=== PATIENT | male | born 1950 | race Caucasian/White ===

== ENCOUNTER 2016-10-20 10:28 | Emergency (ER) | payer OTHER ==
[~2016-10-20 10:28] MED LIST: Sodium Chloride 0.9% 1,000 ML BAG ONE; Sodium Chloride 0.9% 100 ML BAG ONE; Sodium Chloride 0.9% 500 ML BAG ONE
[2016-10-20 11:58] LABS: INR-International Normal Ratio 1.1; Prothrombin Time 14.7 SEC (12.0-14.7)
[2016-10-20 11:59] LABS: PTT 29.4 SEC (22.9-36.1)
[2016-10-20 12:00] LABS: Hemoglobin 9.4 g/dL (14.0-18.0); Mean Corpuscular Hemoglobin 35.1 pg (27.0-31.0); Red Blood Cell (RBC) Count 2.69 mill/uL (4.70-6.10)
[2016-10-20 12:01] LABS: MDiff Complete? YES; Manual Diff?? YES; Mean Corpuscular HGB CONC 34.3 g/dL (32.0-36.0); Mean Platelet Volume 7.9 fL (7.4-10.4); Neutrophil 3 % (42-75); Platelet Count 192 thou/uL (130-400); RBC Distribution Width 15.1 % (11.5-14.5)
[2016-10-20 12:02] LABS: Band 1 % (5-11); Lymphocytes 94 % (21-51); Macrocytosis SLIGHT = 6-15 cells (100X) (0-5/hpf); Metamyelocyte 2 % (0-0)
[2016-10-20 12:09] LABS: ALT (SGPT) 44 U/L (0-55); AST (SGOT) 121 U/L (5-34); Albumin 3.3 g/dL (3.4-4.8); Alkaline Phosphatase 245 U/L (40-150); Anion Gap 24 mmol/L (10-20); BUN (Urea Nitrogen) 69 mg/dL (8.4-25.7); Bilirubin, Total 0.5 mg/dL (0.2-1.2); Calc. Creatinine Clearance 0 mL/min (70-130); Calcium 9.9 mg/dL (7.8-10.44); Carbon Dioxide 17 mmol/L (23-31); Chloride 97 mmol/L (98-107); Estimated GFR-MDRD 12; Globulin 2.4 g/dL (2.4-3.5); Glucose 137 mg/dL (80-115); Potassium 5.8 mmol/L (3.5-5.1); Protein, Total 5.7 g/dL (5.8-8.1); Sodium 132 mmol/L (136-145)
--- NOTE | 2016-10-20 12:10 | RAD ---
SINGLE VIEW OF THE CHEST: COMPARISON: 09/24/16. HISTORY: GI bleed. FINDINGS: A single view of the chest shows a normal-size cardiomediastinal silhouette. There is stable left h ilar fullness. There is no evidence of consolidation or pleural effusion. IMPRESSION: Stable exam with subtle left hilar fullness. POS: [facility]
[2016-10-20 12:22] LABS: Amylase 59 U/L (25-125); Lipase 24 U/L (8-78)
[2016-10-20 12:40] LABS: Blood, Urine Negative (Negative); Clarity Clear (Clear); Glucose, Urine (Dipstick) Negative (Negative); Leukocyte Negative (Negative); Nitrite Negative (Negative); Protein, Urine (Dipstick) 30 mg/dL (Neg-Trace); Urobilinogen 0.2 mg/dL (0.2-1.0)
[2016-10-20 12:47] LABS: Bilirubin Negative (Negative)
[2016-10-20 12:48] LABS: Bacteria/HPF Rare-Few HPF (None Seen); Crystals/HPF 1+ AMORPH PHOS HPF (Negative); Icto Negative (Negative); Other Microscopic Description C&S SET UP; RBC/HPF 0-3 HPF (0-3); Squamous Epithelial 0-3 HPF (0-3)
[2016-10-20] MEDS ORDERED: methylPREDNISolone Sod Succ/PF 125 MG/2 ML VIAL ONE (13:08)
[2016-10-20] MEDS ORDERED: Octreotide Acetate 100 MCG/ML VIAL ONE (13:08)
[2016-10-20] MEDS ORDERED: Dexamethasone 10 MG/ML VIAL ONE (13:08)
[2016-10-20] MEDS ORDERED: Pantoprazole 40 MG VIAL ONE (13:11)
[2016-10-20] MEDS ORDERED: Ondansetron HCl/PF 4 MG/2 ML Vial ONE (13:11)
--- NOTE | 2016-10-20 13:31 | CT ---
CT OF THE ABDOMEN AND PELVIS WITHOUT CONTRAST: COMPARISON: None. HISTORY: Elevated white blood cell count. Back pain for the last 6-7 months. Heartburn for the last 6-7 day s. Abdominal pain and swelling. TECHNIQUE: Multiple contiguous axial images were obtained in a CT of the abdomen and pelvis without contrast. Coronal reformats were performed. FINDINGS: The liver is enlarged and heterogeneous in appearance. There appear to be lesions in the liver arely uring up to approximately 3.5 cm in size. These do not meet criteria for simple cysts. The gallbla dder, kidneys, adrenal glands, and pancreas are unremarkable. There are calcifications in the spleen likely from prior granulomatous disease. The large and small bowel are unremarkable without obvious mass identified on this noncontrast exami nation. The small bowel and appendix are normal. There is mild ectasia in the infrarenal aorta which measures 4.0 cm in greatest dimension. There is no retroperitoneal adenopathy. There are enlarged donnell hepatis lymph nodes measuring up to 2.8 cm in size. Abdominal wall soft tissues are unremarkable. Degenerative changes are seen in the spine. There is a small left pleural effusion. IMPRESSION: 1. There are diffuse scattered lesions in the liver which are nonspecific on this noncontrast exami nation. However, these do not meet criteria for simple cysts and are concerning for hepatic metasta ses. Correlate with history of malignancy. 2. Left pleural effusion. 3. Ectasia of the infrarenal aorta. 4. Enlarged donnell hepatis lymph nodes. POS: [facility]
[2016-10-20 14:17] LABS: Critical Call w/ Read Back PT HX OF CLL
[2016-10-20 14:19] LABS: Hemoglobin 9.1 g/dL (14.0-18.0); MDiff Complete? YES; Manual Diff?? YES; Mean Corpuscular HGB CONC 33.8 g/dL (32.0-36.0); Mean Corpuscular Hemoglobin 34.4 pg (27.0-31.0); Mean Platelet Volume 8.3 fL (7.4-10.4); Platelet Count 182 thou/uL (130-400); RBC Distribution Width 14.7 % (11.5-14.5); Red Blood Cell (RBC) Count 2.65 mill/uL (4.70-6.10)
[2016-10-20 14:20] LABS: Band 1 % (5-11); Lymphocytes 92 % (21-51); Metamyelocyte 2 % (0-0); Neutrophil 5 % (42-75)
[2016-10-20 14:21] LABS: Macrocytosis SLIGHT = 6-15 cells (100X) (0-5/hpf)
--- NOTE | 2016-10-20 15:05 | ERRECORD ---
[facility] EMERGENCY RECORD HPI GENERAL (11:45 LLDO) CHIEF COMPLAINT: Patient presents for evaluation of see triage note. pt presents with host of problems. pt's hemoglobin has dropped from 14 to 10 in past 3 months. vomited x 3 this morning and at least one was possibly bloody (see triage note). abdominal pain and tenderness now. next, has copd and now having trouble breathing (sob) with cough. uses oxy concentrator on a prn basis. HISTORIAN: what actually got him in here today was a call from his pcp at [facility] who said his wbc had gone from 30k 3 months ago to 135k yesterday. been seeing oncologist for leukemia for some time, but the wbc count has been very stable until now. pt weak. has hx elevated bp but now hypotension and tachycardia. LOCATION: Symptoms are generalized. QUALITY: Pain is dull in nature, described as aching. SEVERITY: Maximum severity of symptoms moderate, Currently symptoms are moderate. TIME COURSE: Gradual onset of symptoms, Symptoms are worsening, are constant. ASSOCIATED WITH: Associated with ONLY ABOVE. EXACERBATED BY: Patient's condition exacerbated by ACTIVITY. RELIEVED BY: Patient's condition relieved by nothing. ROS CONSTITUTIONAL: Historian reports fatigue, reports malaise, reports weakness. (12:00 LLDO) EYES: Historian reports eye redness, reports eye discharge. (12:00 LLDO) ENT: Negative ears, nose, throat review of systems, Historian denies otalgia, denies rhinorrhea, denies sinus pain, denies sore throat. (12:07 LLDO) CARDIOVASCULAR: Historian reports dyspnea on exertion. (12:00 LLDO) RESPIRATORY: Historian reports cough, reports sputum, denies stridor, denies wheezing. (12:00 LLDO) GI: Historian reports nausea, reports vomiting. (12:00 LLDO) MUSCULOSKELETAL: Historian reports back pain, pain shooting down both legs. has been told he likely has spinal stenosis. (12:00 LLDO) NEUROLOGIC: Negative neurologic review of systems, Historian denies confusion, denies focal weakness, denies mental status changes, denies sensory changes. (12:07 LLDO) HEMO/LYMPHATIC: Normal hematologic/lymphatic system review, Historian denies abnormal blood clotting, denies gum bleeding, denies petechiae. (12:07 LLDO) ALLERGIC/IMMUNOLOGIC: Normal allergy/immunologic system review, Historian denies eczema, denies environmental allergies, denies food allergies. (12:07 LLDO) &a-1R&a+25V*p+0X*k0393F*c202B*c15G*c2P*p-0X&a-25V&a+1R Name: Vj Perez : 1950 M65 MedRec: [id number] AcctNum: [id number] Prepared: Sat Oct 20, 2016 19:49 by Interface Page 1 of 6 pMD [facility] EMERGENCY RECORD PSYCHIATRIC: Negative psychiatric review of systems, Historian denies alcohol abuse, denies anxiety, denies depression, denies drug abuse, denies hallucinations. (12:07 LLDO) NOTES: All systems reviewed, negative except as described above. (12:00 LLDO) PAST MEDICAL HISTORY MEDICAL HISTORY: Flu vaccine up to date, Tetanus not up to date, Pneumococcal vaccine not up to date, Notes: HTN, COPD, ASTHMA, HIGH CHOLESTEROL, SLEEP APNEA,. LEUKEMIA, ARTHRITIS. PRE-DIABETIC. (12:42 CJEF) MALE SURGICAL HISTORY: HERNIA REPAIR, BILATERAL KNEE SX. (12:42 CJEF) PSYCHIATRIC HISTORY: Psychiatric history includes, depression. (12:45 CJEF) SOCIAL HISTORY: Patient drinks socially, every week, Patient denies alcohol use, Patient denies drug use, Patient currently uses tobacco, smokes cigarettes, daily, Patient has smoked for 30 years, Patient smokes 1.5 packs per day, HAS CUT BACK FROM 3 PPD. (12:42 CJEF) NOTES: Nursing records reviewed, Agree with nursing records, Medication list reviewed. (12:07 LLDO) KNOWN ALLERGIES cefaCLOR CURRENT MEDICATIONS Brovana: VIAL, NEBULIZER (ML) : Strength - 15 mcg/2 mL : INHALATION Patient Dose: 15 mcg Nebulize 2 times a day. (12:54 CJEF) Ashwin-24: CAPSULE, EXT RELEASE 24 HR : Strength - 300 mg : ORAL Patient Dose: 300 mg Oral once a day. (12:54 CJEF) Proventil HFA: HFA AEROSOL WITH ADAPTER (GRAM) : Strength - 90 mcg : INHALATION Patient Dose: 2 puff(s) Inhaler every 4 hours prn. (12:54 CJEF) Combivent: AEROSOL WITH ADAPTER (GRAM) : Strength - 18 mcg-103 mcg (90 mcg)/actuation : INHALATION Patient Dose: 2 puff(s) Inhaler every 4 hours prn. (12:55 CJEF) CeleXA: TABLET : Strength - 40 mg : ORAL Patient Dose: 40 mg Oral once a day. (12:55 CJEF) gabapentin: CAPSULE : Strength - 100 mg : ORAL Patient Dose: 100 mg Oral 3 times a day. (12:56 CJEF) [place]: TABLET : Strength - 10 mg-325 mg : ORAL &a-1R&a+25V*p+0X*z4909O*c202B*c15G*c2P*p-0X&a-25V&a+1R Name: Vj Perez : 1950 M65 MedRec: [id number] AcctNum: [id number] Prepared: Sat Oct 20, 2016 19:49 by Interface Page 2 of 6 pMD [facility] EMERGENCY RECORD Patient Dose: 1 tab(s) Oral every 8 hours PRN. (12:57 CJEF) ibuprofen: TABLET : Strength - 600 mg : ORAL Patient Dose: 600 mg Oral 3 times a day. (12:57 CJEF) Levaquin: TABLET : Strength - 750 mg : ORAL Patient Dose: 750 mg Oral once a day. (12:57 CJEF) lisinopril: TABLET : Strength - 2.5 mg : ORAL Patient Dose: 20 mg Oral once a day. (12:58 CJEF) Singulair: TABLET : Strength - 10 mg : ORAL Patient Dose: 10 mg Oral once a day (in the evening). (12:58 CJEF) predniSONE: TABLET : Strength - 20 mg : ORAL Patient Dose: 20 mg Oral once a day (in the morning).TAPER OFF. (12:59 CJEF) VITAL SIGNS VITAL SIGNS: BP: 106/52, Pulse: 103 (Regular), Resp: 30 (Mild Distress), Temp: 99.4 (Tympanic), Pain: 5 (Constant), O2 sat: 94 on Room Air, Time: 10/20/2016 10:45. (10:45 DBUR) BP: 101/57, Pulse: 95, Resp: 33, O2 sat: 96 on 2L Oxygen, Time: 10/20/2016 13:06. (13:06 CJEF) BP: 106/52, Pulse: 104, Resp: 24, O2 sat: 93 on Room Air, Time: 10/20/2016 11:03. (11:03 CJEF) Pain: 5, Time: 10/20/2016 13:07. (13:07 CJEF) BP: 91/25, Pulse: 100, Resp: 32, Pain: 5, O2 sat: 95 on 2L Oxygen, Time: 10/20/2016 11:57. (11:57 CJEF) BP: 92/41, Pulse: 99, Resp: 14, O2 sat: 94 on 2L Oxygen, Time: 10/20/2016 12:01. (12:01 CJEF) BP: 107/47, Pulse: 99, Resp: 21, O2 sat: 94 on 2L Oxygen, Time: 10/20/2016 12:05. (12:05 CJEF) BP: 116/46, Pulse: 99, Resp: 27, O2 sat: 95 on 2L Oxygen, Time: 10/20/2016 12:15. (12:15 CJEF) BP: 95/31, Pulse: 99, Resp: 17, O2 sat: 94 on 2L Oxygen, Time: 10/20/2016 12:21. (12:21 CJEF) BP: 111/37, Pulse: 65, Resp: 23, O2 sat: 93 on 2L Oxygen, Time: 10/20/2016 12:26. (12:26 CJEF) BP: 103/37, Pulse: 97, Resp: 31, Pain: 5, O2 sat: 94 on 2L Oxygen, Time: 10/20/2016 12:31. (12:31 CJEF) BP: 99/41, Pulse: 87, Resp: 25, Pain: 5, O2 sat: 98 on 2L Oxygen, Time: 10/20/2016 13:24. (13:24 CJEF) BP: 95/42, Pulse: 91, Resp: 30, Pain: 3, O2 sat: 96 on Face mask, Time: 10/20/2016 13:32. (13:32 CJEF) BP: 93/33, Pulse: 82, Resp: 27, Temp: 98.3 (Tympanic), Pain: 3, O2 sat: 97 on Face mask, Time: 10/20/2016 13:40. (13:40 CJEF) BP: 108/42, Pulse: 87, Resp: 24, Pain: 3, O2 sat: 99 on Face mask, Time: 10/20/2016 13:44. (13:44 CJEF) &a-1R&a+25V*p+0X*[id number]*c202B*c15G*c2P*p-0X&a-25V&a+1R Name: Vj Perez : 1950 M65 MedRec: [id number] AcctNum: [id number] Prepared: Sat Oct 20, 2016 19:49 by Interface Page 3 of 6 pMD [facility] EMERGENCY RECORD BP: 92/35, Pulse: 91, Resp: 28, Pain: 3, O2 sat: 94 on 2L Oxygen, Time: 10/20/2016 14:05. (14:05 CJEF) BP: 89/50, Pulse: 94, Resp: 21, Pain: 3, O2 sat: 94 on 2L Oxygen, Time: 10/20/2016 14:35. (14:35 CJEF) BP: 98/41, Pulse: 93, Resp: 22, Pain: 3, O2 sat: 93 on 2L Oxygen, Time: 10/20/2016 15:37. (15:37 CJEF) BP: 93/48, Pulse: 91, Resp: 20, Pain: 3, O2 sat: 95 on 2L Oxygen, Time: 10/20/2016 16:06. (16:06 CJEF) Temp: 97.9 (Tympanic), Time: 10/20/2016 16:07. (16:07 CJEF) BP: 104/46, Pulse: 93, Resp: 19, O2 sat: 94 on 2L Oxygen, Time: 10/20/2016 16:12. (16:12 CJEF) BP: 101/43, Pulse: 90, Resp: 20, Temp: 98.5 (Tympanic), Pain: 3, O2 sat: 93 on 2L Oxygen, Time: 10/20/2016 16:27. (16:27 CJEF) BP: 105/51, Pulse: 94, Resp: 23, O2 sat: 93 on 2L Oxygen, Time: 10/20/2016 16:53. (16:53 CJEF) BP: 108/48, Pulse: 93, Resp: 19, Temp: 97.8 (Tympanic), Pain: 3, O2 sat: 95 on 2L Oxygen, Time: 10/20/2016 17:08. (17:08 CJEF) BP: 96/47, Pulse: 92, Resp: 22, Temp: 98.9 (Tympanic), Pain: 4, O2 sat: 94 on 2L Oxygen, Time: 10/20/2016 17:31. (17:31 [facility]) BP: 114/55, Pulse: 93, Resp: 22, Temp: 98.1 (Tympanic), Pain: 3, O2 sat: 94 on 2L Oxygen, Time: 10/20/2016 17:48. (17:48 [facility]) PHYSICAL EXAM CONSTITUTIONAL: Vital signs reviewed, Patient afebrile, Pulse, tachycardic, Blood pressure, BP SLIGHTLY LOW, Respiratory rate, increased, 30, Patient appears non toxic, Patient appears in pain, in moderate pain distress, Patient alert and oriented to person, place and time. (12:02 LLDO) HEAD: Head exam normal, Head exam included findings of head atraumatic, normocephalic. (12:07 LLDO) EYES: Eye exam included findings of, left eyelid red, left eyelid edematous, right eyelid red, right eyelid edematous, Pupils equally round and reactive to light, Extraocular muscles intact, Conjunctiva, injected bilaterally. (12:02 LLDO) ENT: Ear exam normal, Nose exam normal, Pharynx, injected bilaterally, Uvula exam normal, Mouth exam normal, Sinus exam included findings of frontal sinuses normal, maxillary sinuses normal. (12:02 LLDO) NECK: Neck exam included findings of normal range of motion, Trachea midline, Thyroid normal, no meningeal signs, Cervical adenopathy, diffuse, multiple nodes, tender, swollen. (12:02 LLDO) RESPIRATORY CHEST: Respiratory exam included findings of no respiratory distress, Wheezing present, Rales present, Chest exam included findings of chest movement symmetrical, Chest expansion equal, no tenderness, DIFFUSE, MODERATE WHEEZING AND RALES. (12:02 LLDO) &a-1R&a+25V*p+0X*n3413I*c202B*c15G*c2P*p-0X&a-25V&a+1R Name: Vj Perez : 1950 M65 MedRec: [id number] AcctNum: [id number] Prepared: Sat Oct 20, 2016 19:49 by Interface Page 4 of 6 pMD [facility] EMERGENCY RECORD CARDIOVASCULAR: Cardiovascular exam included findings of heart rate regular rate and rhythm, Heart sounds normal. (12:02 LLDO) ABDOMEN MALE: Abdominal exam included findings of abdomen tender, diffusely, moderate intensity, Bowel sounds, hypoactive, Distension present, no mass, no pulsatile masses, OBESITY LIMITS ABDO EXAM. (12:02 LLDO) BACK: Back exam normal, Back exam included findings of normal inspection, range of motion normal. (12:07 LLDO) UPPER EXTREMITY: Upper extremity exam normal, Upper extremity exam included findings of inspection normal, Range of motion normal. (12:07 LLDO) LOWER EXTREMITY: Lower extremity exam normal, Lower extremity exam included findings of inspection normal, Range of motion normal. (12:07 LLDO) NEURO: Neuro exam normal, Neuro exam findings include patient oriented to person, place and time, Speech normal, [place] coma scale 15. (12:07 LLDO) SKIN: Skin exam included findings of skin warm, dry, and, pale, no rash. (12:02 LLDO) PSYCHIATRIC: Psychiatric exam included findings of patient oriented to person place and time, Affect, anxious, Judgment normal, Insight normal. (12:02 LLDO) MEDICATION ADMINISTRATION SUMMARY Drug Name: *sodium chloride 0.9 % intravenous, Dose Ordered: 150 mL/hr, Route: IV Fluid Infusion, Status: Given, Time: 16:29 10/20/2016, Drug Name: *sodium chloride 0.9 % intravenous, Dose Ordered: 150 mL/hr, Route: IV Fluid Infusion, Status: Given, Time: 14:45 10/20/2016, Drug Name: SandoSTATIN, Dose Ordered: 100 mcg, Route: IV Push, Status: Given, Time: 13:38 10/20/2016, Drug Name: *DuoNeb, Dose Ordered: 1 inhalation, Route: Nebulize, Status: Given, Time: 13:37 10/20/2016, Drug Name: Protonix intravenous, Dose Ordered: 40 mg, Route: IV Push, Status: Given, Time: 13:35 10/20/2016, Drug Name: *DuoNeb, Dose Ordered: 1 inhalation, Route: Nebulize, Status: Given, Time: 13:32 10/20/2016, Drug Name: Solu-MEDROL Mix-O-Vial, Dose Ordered: 125 mg, Route: IV Push, Status: Given, Time: 13:26 10/20/2016, Drug Name: Decadron injection, Dose Ordered: 10 mg, Route: IV Push, Status: Given, Time: 13:23 10/20/2016, Drug Name: Duramorph (PF), Dose Ordered: 4 mg, Route: IV Push, Status: Given, Time: 13:22 10/20/2016, Drug Name: DuoNeb, Dose Ordered: 1 inhalation, Route: Nebulize, Status: Given, Time: 13:21 10/20/2016, Drug Name: Zofran intravenous, Dose Ordered: 8 mg, Route: IV Push, Status: Given, Time: 13:18 10/20/2016, Drug Name: *sodium chloride 0.9 % intravenous, Dose Ordered: 1 L, Route: IV Fluid Infusion, Status: Given, Time: 13:15 10/20/2016, &a-1R&a+25V*p+0X*z6669S*c202B*c15G*c2P*p-0X&a-25V&a+1R Name: Vj Perez : 1950 M65 MedRec: [id number] AcctNum: [id number] Prepared: Sat Oct 20, 2016 19:49 by Interface Page 5 of 6 pMD [facility] EMERGENCY RECORD *Additional information available in notes, Detailed record available in Medication Service section. DOCTOR NOTES (14:56 LLDO) TEXT: talked to dr mayberry at [facility], who had to refuse d.t. not having the ability to treat acute leukemias. accepted for [facility] by dr obando. PROBLEM LIST No recorded problems DIAGNOSIS (12:46 LLDO) FINAL: PRIMARY: LEUKEMIA UNS NOT ACHIEVD REMISSION, ADDITIONAL: COPD WITH ACUTE EXACERBATION, Electrolyte imbalance, Renal failure, UGI bleed. PRESCRIPTION No recorded prescriptions DISPOSITION PATIENT: Disposition Type: Transfer, Disposition: [facility]. (12:46 LLDO) Disposition: (none). (13:18 LLDO) Disposition: [facility]. (14:59 LLDO) Patient left the department. (17:51 CJDON) Perez: CHITRA=FRED Burroughs, Sonia CROCKER=FRED Brito, Trini FRITZ=MD Leanne, Marcus &a-1R&a+25V*p+0X*[id number]*c202B*c15G*c2P*p-0X&a-25V&a+1R Name: Vj Perez : 1950 M65 MedRec: [id number] AcctNum: [id number] Prepared: [place] Oct 20, 2016 19:49 by Interface Page 6 of 6 pMD [facility]TDD
--- NOTE | 2016-10-20 15:08 | PICIS ---
[facility] EMERGENCY RECORD COMMUNICATIONS COMMUNICATIONS: Notes: CALLED DR. ZULETA AT [phone], NUMBER FROM FAMILY, DR ZULETA, SHE REPORTS PATIENT HAD CRITICAL WBC AT APPOINTMENT ON 10/18/2016, PREVIOUS LABS IN JUNE 2016 WERE NORMAL. (11:18 DBUR) Notes: called Renny at transfer center to facilitate transfer to [facility]. (12:52 DBUR) Notes: Renny from transfer center called back, [facility] will consider taking patient but transportation will not be covered, will discuss with patient. (13:00 DBUR) Notes: patient is calling spouse to discuss options with her. (13:10 DBUR) Notes: spouse believes that patient still has [employer] and would like to check the status of the insurance and go to [facility] [place]. (13:45 DBUR) Notes: [employer] insurance is valid and Renny at transfer center contacted for transfer to [facility]. (14:20 DBUR) Notes: [facility] cannot accept pt but is referring to [facility]. (14:24 DBUR) Notes: [facility] in [place] has accepted patient. (14:55 DBUR) Notes: ERMD has ordered PRC leuco reduced to be transfused prior to transfer, will delay calling dispatch until transfusion near completion. (15:00 DBUR) Notes: called [facility] dispatch for [employer] transport operator 42 enroute,. (17:03 DBUR) TRIAGE (Sat Oct 20, 2016 11:03 DBUR) TRIAGE NOTES: CALL FROM PCP Jessie ZULETA THAT WHITE CELL COUNT WAS [id number] 10/18/2016 [place] [id number] APPROX 6 MONTHS AGO, WAS INSTRUCTED TO GO TO NEAREST ER. PT REPORTS HIS COPD HAS BEEN WORSE OVER THE LAST TWO MONTHS, ALSO REPORTS BACK PAIN LAST 6-7 MONTHS AND NUMBNESS AND TINGLING IN BLE X 6-7 DAYS. [facility] IS TREATING BACK PAIN POSSIBLE STENOSIS. REPORTS HEARTBURN LAST 6-7 DAYS, VOMITED THREE TIMES TODAY BROWN 'LIKE CHOCOLATE' SLIMY. (Sat Oct 20, 2016 11:03 DBUR) PATIENT: NAME: Vj Perez, AGE: 65, GENDER: male, : Sun 1950, TIME OF GREET: Sat Oct 20, 2016 10:29, PREFERRED LANGUAGE: Nicaraguan, ETHNICITY: Not or , ECODE BILLING MAP: [facility], SSN: [id number], Zip Code: [address], KG WEIGHT: [phone], PHONE: , , , PERSON ID: [id number], [facility]. ([facility] Oct 20, 2016 11:03 DBUR) COMPLAINT: WHITE BLOOD CELL COUNT HIGH. ([facility] Oct 20, 2016 11:03 DBUR) ADMISSION: URGENCY: 3 Urgent, ADMISSION SOURCE: Home, TRANSPORT: CAR, BED: TRIAGE. ([facility] Oct 20, 2016 11:03 DBUR) ASSESSMENT: Assessment: SENT BY PCP FOR SIGNIFICANT ELEVATED WBC. (12:42 CJEF) PAIN: Patient complains of pain described as, Location &a-1R&a+25V*p+0X*h4937O*c202B*c15G*c2P*p-0X&a-25V&a+1R Name: Vj Perez : 1950 M65 MedRec: [id number] AcctNum: [id number] Prepared: [facility] Oct 20, 2016 19:56 by Interface Page 1 of 27 D [facility] EMERGENCY RECORD BACK AND RIB. (12:42 CJEF) IMMUNIZATIONS: Flu vaccine up to date, Tetanus not up to date, Pneumococcal vaccine not up to date. (12:42 CJEF) SIRS SCORING: Heart Rate 55-109 (0), Temp range 96.8-101.1 (0), respiratory rate 25-34 (1), Mental Status altered: no (0), Total SIRS Score 1, Yes, Infection or Suspected Infection. (12:42 CJEF) SIRS NOTIFICATION: Yes, Infection or Suspected Infection. (12:42 CJEF) TRIAGE SCREENING: Patient denies suicidal ideation, Patient denies presence of domestic violence. (12:42 CJEF) PROVIDERS: TRIAGE NURSE: Trini Brito RN. ([facility] Oct 20, 2016 11:03 DBUR) VITAL SIGNS: BP 106/52, Pulse 103, (Regular), Resp 30, (Mild Distress), Temp 99.4, (Tympanic), Pain 5, (Constant), O2 Sat 94, on Room Air, Time 10/20/2016 10:45. (10:45 DBUR) PREVIOUS VISIT ALLERGIES: cefaCLOR. (Sat Oct 20, 2016 11:03 DBUR) cefaCLOR. (12:42 CJEF) KNOWN ALLERGIES cefaCLOR CURRENT MEDICATIONS Brovana: VIAL, NEBULIZER (ML) : Strength - 15 mcg/2 mL : INHALATION Patient Dose: 15 mcg Nebulize 2 times a day. (12:54 CJEF) Ashwin-24: CAPSULE, EXT RELEASE 24 HR : Strength - 300 mg : ORAL Patient Dose: 300 mg Oral once a day. (12:54 CJEF) Proventil HFA: HFA AEROSOL WITH ADAPTER (GRAM) : Strength - 90 mcg : INHALATION Patient Dose: 2 puff(s) Inhaler every 4 hours prn. (12:54 CJEF) Combivent: AEROSOL WITH ADAPTER (GRAM) : Strength - 18 mcg-103 mcg (90 mcg)/actuation : INHALATION Patient Dose: 2 puff(s) Inhaler every 4 hours prn. (12:55 CJEF) CeleXA: TABLET : Strength - 40 mg : ORAL Patient Dose: 40 mg Oral once a day. (12:55 CJEF) gabapentin: CAPSULE : Strength - 100 mg : ORAL Patient Dose: 100 mg Oral 3 times a day. (12:56 CJEF) Irons: TABLET : Strength - 10 mg-325 mg : ORAL Patient Dose: 1 tab(s) Oral every 8 hours PRN. (12:57 CJEF) ibuprofen: TABLET : Strength - 600 mg : ORAL &a-1R&a+25V*p+0X*w7679G*c202B*c15G*c2P*p-0X&a-25V&a+1R Name: Vj Perez : 1950 M65 MedRec: [id number] AcctNum: [id number] Prepared: Sat Oct 20, 2016 19:56 by Interface Page 2 of 27 pMD [facility] EMERGENCY RECORD Patient Dose: 600 mg Oral 3 times a day. (12:57 CJEF) Levaquin: TABLET : Strength - 750 mg : ORAL Patient Dose: 750 mg Oral once a day. (12:57 CJEF) lisinopril: TABLET : Strength - 2.5 mg : ORAL Patient Dose: 20 mg Oral once a day. (12:58 CJEF) Singulair: TABLET : Strength - 10 mg : ORAL Patient Dose: 10 mg Oral once a day (in the evening). (12:58 CJEF) predniSONE: TABLET : Strength - 20 mg : ORAL Patient Dose: 20 mg Oral once a day (in the morning).TAPER OFF. (12:59 CJEF) VITAL SIGNS VITAL SIGNS: BP: 106/52, Pulse: 103 (Regular), Resp: 30 (Mild Distress), Temp: 99.4 (Tympanic), Pain: 5 (Constant), O2 sat: 94 on Room Air, Time: 10/20/2016 10:45. (10:45 DBUR) BP: 101/57, Pulse: 95, Resp: 33, O2 sat: 96 on 2L Oxygen, Time: 10/20/2016 13:06. (13:06 CJEF) BP: 106/52, Pulse: 104, Resp: 24, O2 sat: 93 on Room Air, Time: 10/20/2016 11:03. (11:03 CJEF) Pain: 5, Time: 10/20/2016 13:07. (13:07 CJEF) BP: 91/25, Pulse: 100, Resp: 32, Pain: 5, O2 sat: 95 on 2L Oxygen, Time: 10/20/2016 11:57. (11:57 CJEF) BP: 92/41, Pulse: 99, Resp: 14, O2 sat: 94 on 2L Oxygen, Time: 10/20/2016 12:01. (12:01 CJEF) BP: 107/47, Pulse: 99, Resp: 21, O2 sat: 94 on 2L Oxygen, Time: 10/20/2016 12:05. (12:05 CJEF) BP: 116/46, Pulse: 99, Resp: 27, O2 sat: 95 on 2L Oxygen, Time: 10/20/2016 12:15. (12:15 CJEF) BP: 95/31, Pulse: 99, Resp: 17, O2 sat: 94 on 2L Oxygen, Time: 10/20/2016 12:21. (12:21 CJEF) BP: 111/37, Pulse: 65, Resp: 23, O2 sat: 93 on 2L Oxygen, Time: 10/20/2016 12:26. (12:26 CJEF) BP: 103/37, Pulse: 97, Resp: 31, Pain: 5, O2 sat: 94 on 2L Oxygen, Time: 10/20/2016 12:31. (12:31 CJEF) BP: 99/41, Pulse: 87, Resp: 25, Pain: 5, O2 sat: 98 on 2L Oxygen, Time: 10/20/2016 13:24. (13:24 CJEF) BP: 95/42, Pulse: 91, Resp: 30, Pain: 3, O2 sat: 96 on Face mask, Time: 10/20/2016 13:32. (13:32 CJEF) BP: 93/33, Pulse: 82, Resp: 27, Temp: 98.3 (Tympanic), Pain: 3, O2 sat: 97 on Face mask, Time: 10/20/2016 13:40. (13:40 CJEF) BP: 108/42, Pulse: 87, Resp: 24, Pain: 3, O2 sat: 99 on Face mask, Time: 10/20/2016 13:44. (13:44 CJEF) BP: 92/35, Pulse: 91, Resp: 28, Pain: 3, O2 sat: 94 on 2L Oxygen, Time: 10/20/2016 14:05. (14:05 CJEF) BP: 89/50, Pulse: 94, Resp: 21, Pain: 3, O2 sat: 94 on 2L Oxygen, Time: &a-1R&a+25V*p+0X*c0336T*c202B*c15G*c2P*p-0X&a-25V&a+1R Name: Vj Perez : 1950 M65 MedRec: [id number] AcctNum: [id number] Prepared: Sat Oct 20, 2016 19:56 by Interface Page 3 of 27 pMD [facility] EMERGENCY RECORD 10/20/2016 14:35. (14:35 CJEF) BP: 98/41, Pulse: 93, Resp: 22, Pain: 3, O2 sat: 93 on 2L Oxygen, Time: 10/20/2016 15:37. (15:37 CJEF) BP: 93/48, Pulse: 91, Resp: 20, Pain: 3, O2 sat: 95 on 2L Oxygen, Time: 10/20/2016 16:06. (16:06 CJEF) Temp: 97.9 (Tympanic), Time: 10/20/2016 16:07. (16:07 CJEF) BP: 104/46, Pulse: 93, Resp: 19, O2 sat: 94 on 2L Oxygen, Time: 10/20/2016 16:12. (16:12 CJEF) BP: 101/43, Pulse: 90, Resp: 20, Temp: 98.5 (Tympanic), Pain: 3, O2 sat: 93 on 2L Oxygen, Time: 10/20/2016 16:27. (16:27 EF) BP: 105/51, Pulse: 94, Resp: 23, O2 sat: 93 on 2L Oxygen, Time: 10/20/2016 16:53. (16:53 EF) BP: 108/48, Pulse: 93, Resp: 19, Temp: 97.8 (Tympanic), Pain: 3, O2 sat: 95 on 2L Oxygen, Time: 10/20/2016 17:08. (17:08 EF) BP: 96/47, Pulse: 92, Resp: 22, Temp: 98.9 (Tympanic), Pain: 4, O2 sat: 94 on 2L Oxygen, Time: 10/20/2016 17:31. (17:31 EF) BP: 114/55, Pulse: 93, Resp: 22, Temp: 98.1 (Tympanic), Pain: 3, O2 sat: 94 on 2L Oxygen, Time: 10/20/2016 17:48. (17:48 [facility]) NURSING ASSESSMENT: FALL RISK (12:37 [facility]) FALL RISK: Fall risk assessment findings include: History of falls (5), No bed rest greater than 2 days (0), No use of level of consciousness altering agents with mentation or cognitive changes (0), No change in blood pressure (0), Sensory deficits (1), Impaired mobility (3), No neurologic diagnosis (0), Elimination problems (3), No confusion (0), Total score 12, Fall risk. [facility] assessment findings include patient not confused, disoriented or impulsive, not symptomatic or depressed, altered elimination(1), dizziness or vertigo(1), male(1), no antiepileptics (anticonvulsants) administered, no Benzodiazepines administered, Unable to rise without assistance during test(4), Total score 7, Score greater than 5. Patient is at high risk for fall. Fall risk precautions initiated. NURSING ASSESSMENT: HEAD-TO-TOE (13:00 DBUR) CONSTITUTIONAL: Patient arrives, via hospital wheelchair, History obtained from patient, Patient appears, in respiratory distress, uncomfortable, Patient cooperative, Patient alert, Oriented to person, place and time, Skin warm, Skin dry, Skin, pale in color, Mucous membranes pink, Mucous membranes, tacky, Patient, poorly groomed, Patient complains of presented due to critcal lab value. PAIN: gnawing pain, miserable pain, numb pain, tingling pain, low back and ble, on a scale 0-10 patient rates pain as 5. SKIN: Skin assessment findings include skin, hot to touch, Skin, pale in color. &a-1R&a+25V*p+0X*x5044R*c202B*c15G*c2P*p-0X&a-25V&a+1R Name: Vj Perez : 1950 M65 MedRec: [id number] AcctNum: [id number] Prepared: Sat Oct 20, 2016 19:56 by Interface Page 4 of 27 pMD [facility] EMERGENCY RECORD NEURO: Pupils equally round and reactive to light, Able to close eyes, Notes: dried yellow crust around eyes. BACK: Back assessment findings include tenderness to, bilateral lower back, Weakness to, bilateral lower extremities. RESPIRATORY/CHEST: Lungs auscultated, Breath sounds with rales, to bilateral upper lobes, to bilateral lower lobes, anteriorally, posteriorally, scattered, to bilateral lower lobes, Respiratory assessment findings include respiratory effort, labored, tachypneic, Respirations regular, Converses, in short phrases, Neck and chest exam findings include trachea midline, Chest expansion equal, Chest movement symmetrical, no retractions noted, no cyanosis. CARDIOVASCULAR: Heart rhythm normal sinus. ABDOMEN: tender, to the epigastric region, Resonance with percussion, Bowel sound normal, Associated with vomiting, Number of times: 3, brown. NURSING ASSESSMENT: SKIN (13:40 CJEF) SKIN: Skin assessment findings include skin warm, Skin dry, Skin normal in color, Inspection findings include pressure ulcer to the sacrum, Stage I, NON-BLANCHABLE REDNESS TO SACRUM. MAURI SCALE: (2) Sensory perception very limited, (3) Skin is occasionally moist, (2) Patient is chairfast, (2) Very limited mobility, (3) Adequate nutrition, (2) Patient has potential problem moving, Mauri Risk Total: 14. NOTES: Patient tolerated procedure well. SAFETY: Side rails up, Cart/Stretcher in lowest position, Family at bedside, Call light within reach, Hospital ID band on. NURSING PROCEDURE: BEDSIDE RADIOLOGY (11:38 CJEF) PATIENT IDENTIFIER: Patient actively involved in identification process, Patient's identity verified by patient stating name, Patient's identity verified by patient stating date. BEDSIDE RADIOLOGY: Portable chest x-ray performed. NOTES: Patient tolerated procedure well. SAFETY: Side rails up, Cart/Stretcher in lowest position, Family at bedside, Call light within reach, Hospital ID band on. NURSING PROCEDURE: BEDSIDE SIRS TESTING (12:44 CJEF) SCORES: Heart Rate 55-109 (0), Temp range 96.8-101.1 (0), respiratory rate 25-34 (1), Latest WBC greater than or equal to 40 (4), Mental Status altered: no (0), Total SIRS Score 5, Yes, Infection or Suspected Infection. SIRS: Yes, Infection or Suspected Infection. &a-1R&a+25V*p+0X*r3413J*c202B*c15G*c2P*p-0X&a-25V&a+1R Name: Vj Perez : 1950 M65 MedRec: [id number] AcctNum: [id number] Prepared: Sat Oct 20, 2016 19:56 by Interface Page 5 of 27 pMD [facility] EMERGENCY RECORD NURSING PROCEDURE: BEDSIDE TESTING PATIENT IDENTIFIER: Patient actively involved in identification process, Patient's identity verified by patient stating name, Patient's identity verified by patient stating date. (16:40 CJEF) HEMOCCULT/GASTROCCULT: Hemoccult/Gastroccult indicated for CRITICAL LAB FROM PCP, Gastric sample, result positive, Control line positive. (12:34 CJEF) Stool sample, result negative, Control line positive. (16:40 CJEF) FOLLOW-UP: After procedure, results given to Dr. FRAIRE. (12:34 CJEF) After procedure, results given to Dr. FRAIRE. (16:40 CJEF) SAFETY: Side rails up, Cart/Stretcher in lowest position, Family at bedside, Call light within reach, Hospital ID band on. (12:34 CJEF) Side rails up, Cart/Stretcher in lowest position, Family at bedside, Call light within reach, Hospital ID band on. (16:40 CJEF) NURSING PROCEDURE: BLOOD TRANSFUSION PATIENT IDENTIFIER: Patient actively involved in identification process, Patient's identity verified by patient stating name, Patient's identity verified by patient stating date. (16:09 CJEF) Patient actively involved in identification process, Patient's identity verified by patient stating name, Patient's identity verified by patient stating date. (17:33 CJEF) BLOOD TRANSFUSION: Blood transfusion indicated for low hemoglobin, Blood transfusion indicated for gastrointestinal bleed, Consent for blood transfusion signed and witnessed, Transfusion protocol verified by two nurses at bedside, IV connections checked prior to administration, IV line traced prior to administration, Blood product infused: leukocyte reduced packed red blood cells, Unit number [id number], Expiration date 11/21/2016, Blood type: O positive, Blood band number [id number], first unit given, to IV site number one, to the right forearm, with blood tubing. (16:09 CJEF) Blood transfusion indicated for low hemoglobin, Consent for blood transfusion signed and witnessed, IV connections checked prior to administration, IV line traced prior to administration, Blood product infused: leukocyte reduced packed red blood cells, Unit number [id number], Expiration date 11/21/2016, Blood type: O positive, Blood band number [id number], second unit given, to IV site number one, to the right forearm, with blood tubing. (17:33 CJEF) FOLLOW-UP: Leukocyte reduced packed red blood cells transfusion infused, of unit number [id number], amount infused (mL) 250 ML, After procedure, no signs of infiltration at infusion site, After procedure, no drainage at infusion site, After procedure, no swelling at infusion site, After procedure, no redness at infusion site, Notes: BLOOD TRANSFUSION FINISHED WITH ADMINSITRATION OF 250ML. (17:10 CJEF) Leukocyte reduced packed red blood cells transfusion infused, of unit &a-1R&a+25V*p+0X*v0062M*c202B*c15G*c2P*p-0X&a-25V&a+1R Name: Vj Perez : 1950 M65 MedRec: [id number] AcctNum: [id number] Prepared: [place] Oct 20, 2016 19:56 by Interface Page 6 of 27 pMD [facility] EMERGENCY RECORD number [id number], amount infused (mL) 250 ML, After procedure, no signs of infiltration at infusion site, After procedure, no drainage at infusion site, After procedure, no swelling at infusion site, After procedure, no redness at infusion site, Notes: BLOOD TRANSFUSION TRANSFERRED WITH EMS AND TOTAL OF 49ML ADMINSITERED AT THIS TIME. (17:49 CJEF) NOTES: Patient tolerated procedure well. (16:09 CJEF) Patient tolerated procedure well. (17:33 CJEF) SAFETY: Side rails up, Cart/Stretcher in lowest position, Family at bedside, Call light within reach, Hospital ID band on. (16:09 CJEF) Side rails up, Cart/Stretcher in lowest position, Family at bedside, Call light within reach, Hospital ID band on. (17:33 CJEF) NURSING PROCEDURE: SOLE RUFFER (11:03 CJEF) PATIENT IDENTIFIER: Patient actively involved in identification process, Patient's identity verified by patient stating name, Patient's identity verified by patient stating date. SOLE RUFFER: Patient placed on monitoring analyst, Heart rate: 99, showing normal sinus rhythm, Patient placed on non-invasive blood pressure monitor, Patient placed on continuous pulse oximetry, Adult/pediatric oxisensor applied. FOLLOW-UP: After procedure, alarms set and on, After procedure, patient tolerating monitoring. NOTES: Patient tolerated procedure well. SAFETY: Side rails up, Cart/Stretcher in lowest position, Family at bedside, Call light within reach, Hospital ID band on. NURSING PROCEDURE: COMMUNICATIONS (16:18 CJEF) COMMUNICATIONS: Notes: CONFIRMED ORDER FROM DR. FRAIRE THAT BOTH IV SITES WILL HAVE NS AT 150ML/HR. ALSO BHAT CATHETER WILL NOW BE INSERTED WELL. NURSING PROCEDURE: EKG CHART (11:51 CJEF) PATIENT IDENTIFIER: Patient actively involved in identification process, Patient's identity verified by patient stating name, Patient's identity verified by patient stating date. EK lead EKG performed on the left chest, done by TRINI IBARRA, first EKG. FOLLOW-UP: After procedure, EKG for interpretation given to Dr. FRAIRE. NOTES: Patient tolerated procedure well. SAFETY: Side rails up, Cart/Stretcher in lowest position, Family at bedside, Call light within reach, Hospital ID band on. NURSING PROCEDURE: GASTRIC TUBE (12:36 CJEF) PATIENT IDENTIFIER: Patient actively involved in identification process, Patient's identity verified by patient stating name, Patient's identity verified by patient stating date. GASTRIC TUBE: Gastric tube indicated for possible &a-1R&a+25V*p+0X*v8609N*c202B*c15G*c2P*p-0X&a-25V&a+1R Name: Vj Perez : 1950 M65 MedRec: [id number] AcctNum: [id number] Prepared: Sat Oct 20, 2016 19:56 by Interface Page 7 of 27 pMD [facility] EMERGENCY RECORD gastrointestinal bleed, 16fr gastric tube inserted, into the right nare, in one attempt, Placement verified by auscultation, Placement verified by stomach contents in tube, Placement verified by patient able to speak without difficulty, Gastric tube to low intermittent suction, Gastroccult positive, Control line positive, Notes: CONTENTS IN TUBE REDISH IN COLOR, THOUGH PT DID DRINK GRAPE JUICE GENERAL INTERNAL MEDICINE DOCTOR. FOLLOW-UP: After procedure, gastric tube patent, After procedure, suction maintained. NOTES: Patient tolerated procedure well. SAFETY: Side rails up, Cart/Stretcher in lowest position, Family at bedside, Call light within reach, Hospital ID band on. NURSING PROCEDURE: IV PATIENT IDENITIFIER: Patient actively involved in identification process, Patient's identity verified by patient stating name, Patient's identity verified by patient stating date. (11:38 CJEF) Patient actively involved in identification process, Patient's identity verified by patient stating name, Patient's identity verified by patient stating date. (16:26 CJEF) IV SITE 1: IV therapy indicated for hydration, IV therapy indicated for medication administration, IV established, to the right forearm, using a 20 gauge catheter, in one attempt, IV site prepped with CHLORAPREP, Saline lock established, Flushed with normal saline (mls): 10, Labs drawn at time of placement, labeled in the presence of the patient and sent to lab. (11:38 CJEF) IV SITE 2: IV therapy indicated for hydration, IV therapy indicated for medication administration, IV established, to the left forearm, using a 20 gauge catheter, in one attempt, IV site prepped with CHLORAPREP, Saline lock established, Flushed with normal saline (mls): 10. (16:26 CJEF) FOLLOW-UP SITE 1: After procedure, sterile transparent dressing applied. (11:38 CJEF) FOLLOW-UP SITE 2: After procedure, sterile transparent dressing applied. (16:26 CJEF) NOTES: Patient tolerated procedure well, Procedure done by TRINI IBARRA. (11:38 CJEF) Patient tolerated procedure well. (16:26 CJEF) SAFETY: Side rails up, Cart/Stretcher in lowest position, Family at bedside, Call light within reach, Hospital ID band on. (11:38 CJEF) Side rails up, Cart/Stretcher in lowest position, Family at bedside, Call light within reach, Hospital ID band on. (16:26 CJEF) NURSING PROCEDURE: NURSE NOTES NURSES NOTES: Patient in no apparent distress, Patient resting quietly, Notes: PT RESTING IN BED QUIETLY WITH FAMILY AT BEDSIDE. NO DISTRESS NOTED. (13:41 CJEF) Patient in no apparent distress, Patient resting quietly, Notes: PT &a-1R&a+25V*p+0X*u3167G*c202B*c15G*c2P*p-0X&a-25V&a+1R Name: Vj Perez : 1950 M65 MedRec: [id number] AcctNum: [id number] Prepared: Sat Oct 20, 2016 19:56 by Interface Page 8 of 27 pMD [facility] EMERGENCY RECORD RESTING IN BED QUIETLY WITH FAMILY AT BEDSIDE. NO DISTRESS NOTED. (14:05 CJEF) Patient in no apparent distress, Patient resting quietly, Notes: PT RESTING IN BED QUIETLY WITH FAMILY AT BEDSIDE. NO DISTRESS NOTED. (14:35 CJEF) Notes: EMS AT BEDSIDE FOR PT REPORT. STARTING SECOND BLOOD TRANSFUSION TO BE TRANSFERRED WITH EMS. (17:10 CJEF) Notes: PT MOVED TO EMS STRETCHER AND 1ST & 2ND BLOOD VITALS TAKEN. (17:48 CJEF) NURSING PROCEDURE: OXYGEN THERAPY (11:10 CJEF) PATIENT IDENTIFIER: Patient actively involved in identification process, Patient's identity verified by patient stating name, Patient's identity verified by patient stating date. OXYGEN THERAPY: Oxygen therapy indicated for wheezing, Oxygen therapy indicated for respiratory distress, Oxygen saturation 92%, by adult/pediatric oxisensor, single pulse oximetry reading, 2L oxygen given, via nasal cannula applied, Applied by TRINI IBARRA, Notes: PT PLACED ON NC AT 2LPM DUE TO RESP DISTRESS AND VERY COURSE LUNG SOUNDS. FOLLOW-UP: Notes: REMAINS COARSE LUNG SOUNDS. NOTES: Patient tolerated procedure well. SAFETY: Side rails up, Cart/Stretcher in lowest position, Family at bedside, Call light within reach, Hospital ID band on. NURSING PROCEDURE: TRANSFER (18:26 DBUR) TRANSFER: Diagnosis: gi bleed, all, copd, renal failure, electrolyte imbalance, Accepting institution: [facility], Accepting physician: giacomo, Referring physician: leanne, Transported by urgent ambulance, accompanied by emergency medical services personnel, Report called to receiving facility, [place], Provided opportunity to answer questions, Copy of patient record prepared for receiving facility, Copy of diagnostic studies, Status of patient's valuables documented on chart, Medication reconciliation form prepared and sent to receiving facility, Patient consent for transfer signed, Family member contacted, son at bedside. NURSING PROCEDURE: TRANSPORT TO TESTS PATIENT IDENTIFIER: Patient actively involved in identification process, Patient's identity verified by patient stating name, Patient's identity verified by patient stating date. (12:33 CJEF) TRANSPORT TO TESTS: Transport indicated to facilitate diagnosis, Patient transported to CT scan, via cart, Accompanied by x-ray audiometric technician. (12:33 CJEF) FOLLOW-UP: After procedure, patient returned to emergency department. (12:50 CJEF) NOTES: Patient tolerated procedure well. (12:33 CJEF) SAFETY: Side rails up, Cart/Stretcher in lowest position, Family at bedside, Call light within reach, Hospital ID band on. (12:33 &a-1R&a+25V*p+0X*w2378D*c202B*c15G*c2P*p-0X&a-25V&a+1R Name: Vj Perez : 1950 M65 MedRec: [id number] AcctNum: [id number] Prepared: Sat Oct 20, 2016 19:56 by Interface Page 9 of 27 D [facility] EMERGENCY RECORD CJEF) NURSING PROCEDURE: URINE COLLECTION PATIENT IDENTIFIER: Patient actively involved in identification process, Patient's identity verified by patient stating name, Patient's identity verified by patient stating date. (12:25 CJEF) Patient actively involved in identification process, Patient's identity verified by patient stating name, Patient's identity verified by patient stating date. (16:37 CJEF) URINE COLLECTION MALE: Urine collected by void, urine yellow in color. (12:25 CJEF) Simple bhat inserted, using a 16 fr pre-connected catheter, urine yellow in color. (16:37 CJEF) NOTES: Patient tolerated procedure well. (12:25 CJEF) SAFETY: Side rails up, Cart/Stretcher in lowest position, Family at bedside, Call light within reach, Hospital ID band on. (12:25 CJEF) NOTES: Patient tolerated procedure well, Procedure done by TRINI IBARRA. (16:37 CJEF) SAFETY: Side rails up, Cart/Stretcher in lowest position, Family at bedside, Call light within reach, Hospital ID band on. (16:37 CJEF) ORDER DETAILS Order Name: Amylase, Status: Active, Time: 11:59 10/20/2016, User: LAM, - Ordered for: MD Fraire Lloyd, - Entered by: MD Fraire Lloyd - Sat Oct 20, 2016 11:59, - Quantity: 1, Order Name: B type Natriuretic Peptide, Status: Active, Time: 11:31 10/20/2016, User: LAM, - Ordered for: MD Fraire Lloyd, - Entered by: MD Fraire Lloyd - Sat Oct 20, 2016 11:31, - Quantity: 1, Order Name: SOLE RUFFER ED, Status: Done, Time: 12:27 10/20/2016, User: CHITRA, - Ordered for: MD Fraire Lloyd, - Entered by: MD Fraire Lloyd - Sat Oct 20, 2016 11:30, - Quantity: 1, Order Name: CBC with Differential, Status: Active, Time: 11:30 10/20/2016, User: LAM, - Ordered for: MD Fraire Lloyd, - Entered by: MD Fraire Lloyd - Sat Oct 20, 2016 11:30, - Quantity: 1, Order Name: CBC with Differential, Status: Active, Time: 13:50 10/20/2016, User: LAM, - Ordered for: MD Fraire Lloyd, - Entered by: MD Fraire Lloyd - Sat Oct 20, 2016 13:50, &a-1R&a+25V*p+0X*p6023J*c202B*c15G*c2P*p-0X&a-25V&a+1R Name: jV Perez : 1950 M65 MedRec: [id number] AcctNum: [id number] Prepared: Sat Oct 20, 2016 19:56 by Interface Page 10 of 27 D [facility] EMERGENCY RECORD - Quantity: 1, Order Name: Comprehensive Metabolic Panel, Status: Active, Time: 11:30 10/20/2016, User: LAM, - Ordered for: MD Fraire Lloyd, - Entered by: MD Fraire Lloyd - Sat Oct 20, 2016 11:30, - Quantity: 1, Order Name: CT Abdomen Pelvis W Con, Status: Canceled, Time: 12:15 10/20/2016, User: System, - Ordered for: MD Fraire Lloyd, - Entered by: MD Fraire Lloyd - Sat Oct 20, 2016 11:59, - Quantity: 1, Order Name: Culture, Urine, Status: Active, Time: 11:30 10/20/2016, User: LAM, - Ordered for: MD Fraire Lloyd, - Entered by: MD Fraire Lloyd - Sat Oct 20, 2016 11:30, - Quantity: 1, Order Name: EKG 12 Lead in Emergency Room, Status: Active, Time: 11:31 10/20/2016, User: LLDO, - Ordered for: MD Fraire Lloyd, - Entered by: MD Fraire Lloyd - Sat Oct 20, 2016 11:31, - Quantity: 1, Order Name: ERRT Oxygen Usage ER, Status: Active, Time: 11:31 10/20/2016, User: LLDO, - Ordered for: MD Fraire Lloyd, - Entered by: MD Fraire Lloyd - Sat Oct 20, 2016 11:31, - Quantity: 1, Order Name: ERRT Pulse Oximeter ER, Status: Active, Time: 11:31 10/20/2016, User: LLDO, - Ordered for: MD Fraire Lloyd, - Entered by: MD Fraire Lloyd - Sat Oct 20, 2016 11:31, - Quantity: 1, Order Name: BHAT CATHETER ED, Status: Done, Time: 16:37 10/20/2016, User: CJEF, - Ordered for: MD Fraire Lloyd, - Entered by: MD Fraire Lloyd - [place] Oct 20, 2016 16:17, - Quantity: 1, Order Name: Lipase, Status: Active, Time: 11:59 10/20/2016, User: LLDO, - Ordered for: MD Fraire Lloyd, - Entered by: MD Fraire Lloyd - Sat Oct 20, 2016 11:59, - Quantity: 1, Order Name: NG TUBE PLACEMENT ED, Status: Done, Time: 12:31 10/20/2016, User: CJEF, - Ordered for: MD Fraire Lloyd, - Entered by: MD Fraire Lloyd - Sat Oct 20, 2016 11:43, - Quantity: 1, Order Name: Occult Blood, Gastric, Status: Active, Time: 11:30 10/20/2016, User: LLDO, - Ordered for: MD Fraire Lloyd, - Entered by: MD Fraire Lloyd - Sat Oct 20, 2016 11:30, - Quantity: 1, &a-1R&a+25V*p+0X*d7571R*c202B*c15G*c2P*p-0X&a-25V&a+1R Name: Vj Perez: 1950 M65 MedRec: [id number] AcctNum: [id number] Prepared: Sat Oct 20, 2016 19:56 by Interface Page 11 of 27 D [facility] EMERGENCY RECORD Order Name: Occult Blood, Stool DIAGNOSTIC(Guiac), Status: Active, Time: 11:30 10/20/2016, User: LAM, - Ordered for: MD Fraire Lloyd, - Entered by: MD Fraire Lloyd - [facility] Oct 20, 2016 11:30, - Quantity: 1, Order Name: Packed Cells - Leukoreduced, Status: Active, Time: 16:50 10/20/2016, User: LAM, - Ordered for: MD Fraire Lloyd, - Entered by: MD Fraire Lloyd - [place] Oct 20, 2016 16:50, - Quantity: 1, Order Name: Packed Cells - Leukoreduced, Status: Active, Time: 14:49 10/20/2016, User: LAM, - Ordered for: MD Fraire Lloyd, - Entered by: MD Fraire Lloyd - [facility] Oct 20, 2016 14:49, - Quantity: 1, Order Name: Protime with INR, Status: Active, Time: 11:31 10/20/2016, User: LAM, - Ordered for: MD Fraire Lloyd, - Entered by: MD Fraire Lloyd - [facility] Oct 20, 2016 11:31, - Quantity: 1, Order Name: PTT, Status: Active, Time: 11:31 10/20/2016, User: LL, - Ordered for: MD Fraire Lloyd, - Entered by: MD Fraire Lloyd - [facility] Oct 20, 2016 11:31, - Quantity: 1, Order Name: SALINE LOCK, Status: Done, Time: 16:28 10/20/2016, User: CHITRA, - Ordered for: MD Fraire Lloyd, - Entered by: MD Fraire Lloyd - Sat Oct 20, 2016 16:01, - Quantity: 1, Order Name: SALINE LOCK, Status: Done, Time: 12:27 10/20/2016, User: CHITRA, - Ordered for: MD Fraire Lloyd, - Entered by: MD Fraire Lloyd - [place] Oct 20, 2016 11:30, - Quantity: 1, Order Name: Type & Screen, Status: Active, Time: 13:51 10/20/2016, User: LAM, - Ordered for: MD Fraire Lloyd, - Entered by: MD Fraire Lloyd - [place] Oct 20, 2016 13:51, - Quantity: 1, Order Name: Urinalysis w/ Rflx Microscopic, Status: Active, Time: 11:30 10/20/2016, User: LAM, - Ordered for: MD Fraire Lloyd, - Entered by: MD Fraire Lloyd - [place] Oct 20, 2016 11:30, - Quantity: 1, Order Name: XR Chest 1 View Portable, Status: Active, Time: 11:30 10/20/2016, User: LAM, - Ordered for: MD Fraire Lloyd, - Entered by: MD Fraire Lloyd - [place] Oct 20, 2016 11:30, - Quantity: 1. &a-1R&a+25V*p+0X*n4871Q*c202B*c15G*c2P*p-0X&a-25V&a+1R Name: Vj Perez : 1950 M65 MedRec: [id number] AcctNum: [id number] Prepared: [facility] Oct 20, 2016 19:56 by Interface Page 12 of 27 pMD [facility] MEDICATION ADMINISTRATION SUMMARY Drug Name: *sodium chloride 0.9 % intravenous, Dose Ordered: 150 mL/hr, Route: IV Fluid Infusion, Status: Given, Time: 16:29 10/20/2016, Drug Name: *sodium chloride 0.9 % intravenous, Dose Ordered: 150 mL/hr, Route: IV Fluid Infusion, Status: Given, Time: 14:45 10/20/2016, Drug Name: SandoSTATIN, Dose Ordered: 100 mcg, Route: IV Push, Status: Given, Time: 13:38 10/20/2016, Drug Name: *DuoNeb, Dose Ordered: 1 inhalation, Route: Nebulize, Status: Given, Time: 13:37 10/20/2016, Drug Name: Protonix intravenous, Dose Ordered: 40 mg, Route: IV Push, Status: Given, Time: 13:35 10/20/2016, Drug Name: *DuoNeb, Dose Ordered: 1 inhalation, Route: Nebulize, Status: Given, Time: 13:32 10/20/2016, Drug Name: Solu-MEDROL Mix-O-Vial, Dose Ordered: 125 mg, Route: IV Push, Status: Given, Time: 13:26 10/20/2016, Drug Name: Decadron injection, Dose Ordered: 10 mg, Route: IV Push, Status: Given, Time: 13:23 10/20/2016, Drug Name: Duramorph (PF), Dose Ordered: 4 mg, Route: IV Push, Status: Given, Time: 13:22 10/20/2016, Drug Name: DuoNeb, Dose Ordered: 1 inhalation, Route: Nebulize, Status: Given, Time: 13:21 10/20/2016, Drug Name: Zofran intravenous, Dose Ordered: 8 mg, Route: IV Push, Status: Given, Time: 13:18 10/20/2016, Drug Name: *sodium chloride 0.9 % intravenous, Dose Ordered: 1 L, Route: IV Fluid Infusion, Status: Given, Time: 13:15 10/20/2016, *Additional information available in notes, Detailed record available in Medication Service section. MEDICATION SERVICE Decadron injection: Order: Decadron injection (dexamethasone sod phosphate) - Dose: 10 mg : IV Push Schedule: Now Ordered by: Marcus Fraire MD Entered by: Marcus Fraire MD Sat Oct 20, 2016 11:57 Documented as given by: Sonia Burroughs RN Sat Oct 20, 2016 13:23 Patient, Medication, Dose, Route and Time verified prior to administration. Amount given: 10 MG, IV SITE #1 IVP, subsequent different medication, Slowly, Awake and alert- acceptable, Connections checked prior to administration, Line traced prior to administration, Catheter placement confirmed via flush prior to administration, IV site without signs or symptoms of infiltration during medication administration, No swelling during administration, No drainage during administration, IV flushed after administration, Correct patient, time, route, dose and medication confirmed prior to administration, Patient advised of actions and side-effects prior to administration, Allergies confirmed and medications reviewed prior to administration, Patient tolerated procedure well, Patient in position of comfort, Side rails up, Cart in lowest position, Family at bedside. &a-1R&a+25V*p+0X*l3487J*c202B*c15G*c2P*p-0X&a-25V&a+1R Name: Vj Perez : 1950 M65 MedRec: [id number] AcctNum: [id number] Prepared: Sat Oct 20, 2016 19:56 by Interface Page 13 of 27 pMD [facility] RECORD : Follow Up : Response assessment performed, No signs or symptoms of allergic reaction noted, Advised not to ambulate without assistance, Patient in position of comfort, Side rails up, Cart in lowest position, Family at bedside. (13:42 [facility]) DuoNeb: Order: DuoNeb (ipratropium bromide/albuterol sulfate) - Dose: 1 inhalation : Nebulize Schedule: Every 5 minutes Repeat: 3 DOSES Ordered by: Marcus Fraire MD Entered by: Marcus Fraire MD [facility] Oct 20, 2016 11:57 Documented as given by: Sonia Burroughs RN [facility] Oct 20, 2016 13:21 Patient, Medication, Dose, Route and Time verified prior to administration. Amount given: 1 NEB, With oxygen, Correct patient, time, route, dose and medication confirmed prior to administration, Patient advised of actions and side-effects prior to administration, Allergies confirmed and medications reviewed prior to administration, Patient tolerated procedure well, Patient in position of comfort, Side rails up, Cart in lowest position, Family at bedside. : Follow Up : Response assessment performed, No signs or symptoms of allergic reaction noted, Decreased respiratory effort, Advised not to ambulate without assistance, Patient in position of comfort, Side rails up, Cart in lowest position, Family at bedside. (13:42 [facility]) DuoNeb: Order: DuoNeb (ipratropium bromide/albuterol sulfate) - Dose: 1 inhalation : Nebulize Schedule: Every 5 minutes Repeat: 3 DOSES Notes: Written Order Ordered by: Marcus Fraire MD Entered by: Sonia Burroughs RN [facility] Oct 20, 2016 13:32 Documented as given by: Sonia Burroughs RN [facility] Oct 20, 2016 13:32 Patient, Medication, Dose, Route and Time verified prior to administration. Amount given: 1 neb, Site: Medication administered via Hand-held nebulizer, With oxygen, Correct patient, time, route, dose and medication confirmed prior to administration, Patient advised of actions and side-effects prior to administration, Allergies confirmed and medications reviewed prior to administration, Patient tolerated procedure well, Patient in position of comfort, Side rails up, Cart in lowest position, Family at bedside. : Follow Up : Response assessment performed, No signs or symptoms of allergic reaction noted, Decreased respiratory effort, Advised not to ambulate without assistance, Patient in position of comfort, Side rails up, Cart in lowest position, Family at bedside. (13:42 [facility]) DuoNeb: Order: DuoNeb (ipratropium bromide/albuterol sulfate) - Dose: 1 inhalation : Nebulize Schedule: Every 5 minutes Repeat: 3 DOSES Notes: Written Order Ordered by: Marcus Fraire MD Entered by: Sonia Burroughs RN [facility] Oct 20, 2016 13:32 &a-1R&a+25V*p+0X*b1388S*c202B*c15G*c2P*p-0X&a-25V&a+1R Name: Vj Perez : 1950 M65 MedRec: [id number] AcctNum: [id number] Prepared: Sat Oct 20, 2016 19:56 by Interface Page 14 of 27 p[facility]ORD Documented as given by: Sonia Burroughs RN [facility] Oct 20, 2016 13:37 Patient, Medication, Dose, Route and Time verified prior to administration. Amount given: 1 neb, Site: Medication administered via Hand-held nebulizer, With oxygen, Correct patient, time, route, dose and medication confirmed prior to administration, Patient advised of actions and side-effects prior to administration, Allergies confirmed and medications reviewed prior to administration, Patient tolerated procedure well, Patient in position of comfort, Side rails up, Cart in lowest position, Family at bedside. : Follow Up : Response assessment performed, No signs or symptoms of allergic reaction noted, Decreased respiratory effort, Advised not to ambulate without assistance, Patient in position of comfort, Side rails up, Cart in lowest position, Family at bedside. (13:42 [facility]) Duramorph (PF): Order: Duramorph (PF) (morphine sulfate/preservative free) - Dose: 4 mg : IV Push Schedule: Now Ordered by: Marcus Fraire MD Entered by: Marcus Fraire MD Sat Oct 20, 2016 11:57 Documented as given by: Sonia Burroughs RN Sat Oct 20, 2016 13:22 Patient, Medication, Dose, Route and Time verified prior to administration. Amount given: 4 MG, IV SITE #1 IVP, subsequent different medication, Slowly, Awake and alert- acceptable, Connections checked prior to administration, Line traced prior to administration, Catheter placement confirmed via flush prior to administration, IV site without signs or symptoms of infiltration during medication administration, No swelling during administration, No drainage during administration, IV flushed after administration, Correct patient, time, route, dose and medication confirmed prior to administration, Patient advised of actions and side-effects prior to administration, Allergies confirmed and medications reviewed prior to administration, Patient tolerated procedure well, Patient in position of comfort, Side rails up, Cart in lowest position, Family at bedside. : Follow Up : Response assessment performed, No signs or symptoms of allergic reaction noted, Decreased pain, Advised not to ambulate without assistance, Patient in position of comfort, Side rails up, Cart in lowest position, Family at bedside. (13:42 [facility]) Protonix intravenous: Order: Protonix intravenous (pantoprazole sodium) - Dose: 40 mg : IV Push Schedule: Now Ordered by: Marcus Fraire MD Entered by: Marcus Fraire MD Sat Oct 20, 2016 12:42 Documented as given by: Sonia Burroughs RN Sat Oct 20, 2016 13:35 Patient, Medication, Dose, Route and Time verified prior to administration. Amount given: 40mg, IV SITE #1 IVPB or drip, subsequent infusion, IVPB mixed in: 100ml, Fluid: 0.9NS, via primary tubing, Awake and &a-1R&a+25V*p+0X*a3828K*c202B*c15G*c2P*p-0X&a-25V&a+1R Name: Vj Perez : 1950 M65 MedRec: [id number] AcctNum: [id number] Prepared: [facility] Oct 20, 2016 19:56 by Interface Page 15 of 27 p[facility] alert- acceptable, Connections checked prior to administration, Line traced prior to administration, Catheter placement confirmed via flush prior to administration, IV site without signs or symptoms of infiltration during medication administration, No swelling during administration, No drainage during administration, IV flushed after administration, Correct patient, time, route, dose and medication confirmed prior to administration, Patient advised of actions and side-effects prior to administration, Allergies confirmed and medications reviewed prior to administration, Patient tolerated procedure well, Patient in position of comfort, Side rails up, Cart in lowest position, Family at bedside. : Follow Up : Response assessment performed, No signs or symptoms of allergic reaction noted, _IV SITE #1:_, Medication infusion discontinued, on Sat Oct 20, 2016 13:43, 10 minutes, ., Total amount infused: 100ML, Advised not to ambulate without assistance, Patient in position of comfort, Side rails up, Cart in lowest position, Family at bedside. (13:43 [facility]) SandoSTATIN: Order: SandoSTATIN (octreotide acetate) - Dose: 100 mcg : IV Push Schedule: Now Ordered by: Marcus Fraire MD Entered by: Marcus Fraire MD Sat Oct 20, 2016 12:43 , Acknowledged by: Trini Brito RN Sat Oct 20, 2016 12:59 Documented as given by: Sonia Burroughs RN Sat Oct 20, 2016 13:38 Patient, Medication, Dose, Route and Time verified prior to administration. Amount given: 100 mcg, IV SITE #1 IVP, subsequent different medication, Slowly, Awake and alert- acceptable, Connections checked prior to administration, Line traced prior to administration, Catheter placement confirmed via flush prior to administration, IV site without signs or symptoms of infiltration during medication administration, No swelling during administration, No drainage during administration, IV flushed after administration, Correct patient, time, route, dose and medication confirmed prior to administration, Patient advised of actions and side-effects prior to administration, Allergies confirmed and medications reviewed prior to administration, Patient tolerated procedure well, Patient in position of comfort, Side rails up, Cart in lowest position, Family at bedside. : Follow Up : Response assessment performed, No signs or symptoms of allergic reaction noted, Advised not to ambulate without assistance, Patient in position of comfort, Side rails up, Cart in lowest position, Family at bedside. (13:43 [facility]) sodium chloride 0.9 % intravenous: Order: sodium chloride 0.9 % intravenous (0.9 % sodium chloride) - Dose: 1 L : IV Fluid Infusion Notes: (Bolus) after bolus is in, run NS at 150 ml/h Ordered by: Marcus Fraire MD Entered by: Marcus Fraire MD [facility] Oct 20, 2016 11:56 Documented as given by: Sonia Burroughs RN [facility] Oct 20, 2016 13:15 Patient, Medication, Dose, Route and Time verified prior to &a-1R&a+25V*p+0X*u8880U*c202B*c15G*c2P*p-0X&a-25V&a+1R Name: Vj Perez : 1950 M65 MedRec: [id number] AcctNum: [id number] Prepared: [facility] Oct 20, 2016 19:56 by Interface Page 16 of 27 p[facility] EM[facility]Y RECORD administration. Amount given: 1 L, IV SITE #1 IV fluids established for hydration, IV SITE #1 into right forearm, IV SITE #1 1st bag hung, IV SITE #1 bolus of 1000 ml established, via primary tubing, Awake and alert- acceptable, Connections checked prior to administration, Line traced prior to administration, Catheter placement confirmed via flush prior to administration, IV site without signs or symptoms of infiltration during medication administration, No swelling during administration, No drainage during administration, IV flushed after administration, Correct patient, time, route, dose and medication confirmed prior to administration, Patient advised of actions and side-effects prior to administration, Allergies confirmed and medications reviewed prior to administration, Patient tolerated procedure well, Patient in position of comfort, Side rails up, Cart in lowest position, Family at bedside. : Follow Up : Response assessment performed, No signs or symptoms of allergic reaction noted, _IV SITE #1:_, IV fluid infusion discontinued, on Sat Oct 20, 2016 14:44, Total fluid hydration time IV site 1 1 hour, 30 minutes, ., Total amount infused: 1000ML, Advised not to ambulate without assistance, Patient in position of comfort, Side rails up, Cart in lowest position, Family at bedside. (14:32 [facility]) sodium chloride 0.9 % intravenous: Order: sodium chloride 0.9 % intravenous (0.9 % sodium chloride) - Dose: 150 mL/hr : IV Fluid Infusion Schedule: Now Notes: (Bolus) after bolus is in, run NS at 150 ml/h Ordered by: Marcus Fraire MD Entered by: Sonia Burroughs RN Sat Oct 20, 2016 14:45 Documented as given by: Sonia Burroughs RN Sat Oct 20, 2016 14:45 Patient, Medication, Dose, Route and Time verified prior to administration. Amount given: 150 ML/HR, IV SITE #1 IV fluids established for hydration, IV SITE #1 into right forearm, IV SITE #1 2nd bag hung, IV SITE #1 Rate of infusion (non-bolus) Infusing at 150 ml/hr, via primary tubing, IV SITE #1 on IV pump, Awake and alert- acceptable, Connections checked prior to administration, Line traced prior to administration, Catheter placement confirmed via flush prior to administration, IV site without signs or symptoms of infiltration during medication administration, No swelling during administration, No drainage during administration, IV flushed after administration, Correct patient, time, route, dose and medication confirmed prior to administration, Patient advised of actions and side-effects prior to administration, Allergies confirmed and medications reviewed prior to administration, Patient tolerated procedure well, Patient in position of comfort, Side rails up, Cart in lowest position, Family at bedside. : Follow Up : Response assessment performed, No signs or symptoms of allergic reaction noted, _IV SITE #1:_, IV fluid infusion continued upon transfer from emergency department, on Sat Oct 20, &a-1R&a+25V*p+0X*o1414X*c202B*c15G*c2P*p-0X&a-25V&a+1R Name: Vj Perez : 1950 M65 MedRec: [id number] AcctNum: [id number] Prepared: Sat Oct 20, 2016 19:56 by Interface Page 17 of 27 pMD [facility]ORD 2017 17:10, Total fluid hydration time IV site 1 2 hours, 25 minutes, ., Total amount infused: 387 ML, Advised not to ambulate without assistance, Patient in position of comfort, Side rails up, Cart in lowest position, Family at bedside. (17:10 [facility]) sodium chloride 0.9 % intravenous: Order: sodium chloride 0.9 % intravenous (0.9 % sodium chloride) - Dose: 150 mL/hr : IV Fluid Infusion Schedule: Now Notes: (Bolus) after bolus is in, run NS at 150 ml/h. this order is for the second iv line to run concurrently with the first Ordered by: Marcus Fraire MD Entered by: Marcus Fraire MD Sat Oct 20, 2016 16:03 Documented as given by: Sonia Burroughs RN Sat Oct 20, 2016 16:29 Patient, Medication, Dose, Route and Time verified prior to administration. Amount given: 150ML/HR, IV SITE #2, IV fluids established for hydration, into left forearm, 3rd bag hung, Rate of infusion (non-bolus) Infusing at 150 ml/hr, via primary tubing, on IV pump, Awake and alert- acceptable, Connections checked prior to administration, Line traced prior to administration, Catheter placement confirmed via flush prior to administration, IV site without signs or symptoms of infiltration during medication administration, No swelling during administration, No drainage during administration, IV flushed after administration, Correct patient, time, route, dose and medication confirmed prior to administration, Patient advised of actions and side-effects prior to administration, Allergies confirmed and medications reviewed prior to administration, Patient tolerated procedure well, Patient in position of comfort, Side rails up, Cart in lowest position, Family at bedside. : Follow Up : Response assessment performed, No signs or symptoms of allergic reaction noted, _IV SITE #2:_, IV fluid infusion continued upon transfer from emergency department, on Sat Oct 20, 2016 17:10, 45 minutes, ., Total amount infused: 110 ML, Advised not to ambulate without assistance, Patient in position of comfort, Side rails up, Cart in lowest position, Family at bedside. (17:10 [facility]) Solu-MEDROL Mix-O-Vial: Order: Solu-MEDROL Mix-O-Vial (methylprednisolone sod succ) - Dose: 125 mg : IV Push Schedule: Now Ordered by: Marcus Fraire MD Entered by: Marcus Fraire MD [facility] Oct 20, 2016 11:57 Documented as given by: Sonia Burroughs RN Sat Oct 20, 2016 13:26 Patient, Medication, Dose, Route and Time verified prior to administration. Amount given: 125mg, IV SITE #1 IVP, subsequent different medication, Slowly, Awake and alert- acceptable, Connections checked prior to administration, Line traced prior to administration, Catheter placement confirmed via flush prior to administration, IV site without signs or symptoms of infiltration during medication administration, No swelling during administration, No drainage during &a-1R&a+25V*p+0X*o4587X*c202B*c15G*c2P*p-0X&a-25V&a+1R Name: Vj Perez : 1950 M65 MedRec: [id number] AcctNum: [id number] Prepared: Sat Oct 20, 2016 19:56 by Interface Page 18 of 27 pMD [facility] EMERGENCY RECORD administration, IV flushed after administration, Correct patient, time, route, dose and medication confirmed prior to administration, Patient advised of actions and side-effects prior to administration, Allergies confirmed and medications reviewed prior to administration, Patient tolerated procedure well, Patient in position of comfort, Side rails up, Cart in lowest position, Family at bedside. : Follow Up : Response assessment performed, No signs or symptoms of allergic reaction noted, _IV SITE #1:_, Advised not to ambulate without assistance, Patient in position of comfort, Side rails up, Cart in lowest position, Family at bedside. (13:43 [facility]) Zofran intravenous: Order: Zofran intravenous (ondansetron HCl) - Dose: 8 mg : IV Push Schedule: Now Ordered by: Marcus Fraire MD Entered by: Marcus Fraire MD Sat Oct 20, 2016 11:57 Documented as given by: Sonia Burroughs RN Sat Oct 20, 2016 13:18 Patient, Medication, Dose, Route and Time verified prior to administration. Amount given: 8 MG, IV SITE #1 IVP, subsequent different medication, Slowly, Awake and alert- acceptable, Connections checked prior to administration, Line traced prior to administration, Catheter placement confirmed via flush prior to administration, IV site without signs or symptoms of infiltration during medication administration, No swelling during administration, No drainage during administration, IV flushed after administration, Correct patient, time, route, dose and medication confirmed prior to administration, Patient advised of actions and side-effects prior to administration, Allergies confirmed and medications reviewed prior to administration, Patient tolerated procedure well, Patient in position of comfort, Side rails up, Cart in lowest position, Family at bedside. : Follow Up : Response assessment performed, No signs or symptoms of allergic reaction noted, Advised not to ambulate without assistance, Patient in position of comfort, Side rails up, Cart in lowest position, Family at bedside. (13:44 CJEF) HPI GENERAL (11:45 LLDO) CHIEF COMPLAINT: Patient presents for evaluation of see triage note. pt presents with host of problems. pt's hemoglobin has dropped from 14 to 10 in past 3 months. vomited x 3 this morning and at least one was possibly bloody (see triage note). abdominal pain and tenderness now. next, has copd and now having trouble breathing (sob) with cough. uses oxy concentrator on a prn basis. HISTORIAN: what actually got him in here today was a call from his pcp at [facility] who said his wbc had gone from 30k 3 months ago to 135k yesterday. been seeing oncologist for leukemia for some time, but the wbc count has been very stable until now. pt weak. has hx elevated bp but now hypotension and tachycardia. LOCATION: Symptoms are generalized. QUALITY: Pain is dull in nature, described as aching. &a-1R&a+25V*p+0X*i1696K*c202B*c15G*c2P*p-0X&a-25V&a+1R Name: Vj Perez : 1950 M65 MedRec: [id number] AcctNum: [id number] Prepared: [place] Oct 20, 2016 19:56 by Interface Page 19 of 27 pMD [facility] EMERGENCY RECORD SEVERITY: Maximum severity of symptoms moderate, Currently symptoms are moderate. TIME COURSE: Gradual onset of symptoms, Symptoms are worsening, are constant. ASSOCIATED WITH: Associated with ONLY ABOVE. EXACERBATED BY: Patient's condition exacerbated by ACTIVITY. RELIEVED BY: Patient's condition relieved by nothing. ROS CONSTITUTIONAL: Historian reports fatigue, reports malaise, reports weakness. (12:00 LLDO) EYES: Historian reports eye redness, reports eye discharge. (12:00 LLDO) ENT: Negative ears, nose, throat review of systems, Historian denies otalgia, denies rhinorrhea, denies sinus pain, denies sore throat. (12:07 LLDO) CARDIOVASCULAR: Historian reports dyspnea on exertion. (12:00 LLDO) RESPIRATORY: Historian reports cough, reports sputum, denies stridor, denies wheezing. (12:00 LLDO) GI: Historian reports nausea, reports vomiting. (12:00 LLDO) MUSCULOSKELETAL: Historian reports back pain, pain shooting down both legs. has been told he likely has spinal stenosis. (12:00 LLDO) NEUROLOGIC: Negative neurologic review of systems, Historian denies confusion, denies focal weakness, denies mental status changes, denies sensory changes. (12:07 LLDO) HEMO/LYMPHATIC: Normal hematologic/lymphatic system review, Historian denies abnormal blood clotting, denies gum bleeding, denies petechiae. (12:07 LLDO) ALLERGIC/IMMUNOLOGIC: Normal allergy/immunologic system review, Historian denies eczema, denies environmental allergies, denies food allergies. (12:07 LLDO) PSYCHIATRIC: Negative psychiatric review of systems, Historian denies alcohol abuse, denies anxiety, denies depression, denies drug abuse, denies hallucinations. (12:07 LLDO) NOTES: All systems reviewed, negative except as described above. (12:00 LLDO) PAST MEDICAL HISTORY MEDICAL HISTORY: Flu vaccine up to date, Tetanus not up to date, Pneumococcal vaccine not up to date, Notes: HTN, COPD, ASTHMA, HIGH CHOLESTEROL, SLEEP APNEA,. LEUKEMIA, ARTHRITIS. PRE-DIABETIC. (12:42 CJEF) MALE SURGICAL HISTORY: HERNIA REPAIR, BILATERAL KNEE SX. (12:42 CJEF) PSYCHIATRIC HISTORY: Psychiatric history includes, depression. (12:45 CJEF) &a-1R&a+25V*p+0X*q1940Z*c202B*c15G*c2P*p-0X&a-25V&a+1R Name: Vj Perez : 1950 M65 MedRec: [id number] AcctNum: [id number] Prepared: [place] Oct 20, 2016 19:56 by Interface Page 20 of 27 pMD [facility] EMERGENCY RECORD SOCIAL HISTORY: Patient drinks socially, every week, Patient denies alcohol use, Patient denies drug use, Patient currently uses tobacco, smokes cigarettes, daily, Patient has smoked for 30 years, Patient smokes 1.5 packs per day, HAS CUT BACK FROM 3 PPD. (12:42 [facility]) NOTES: Nursing records reviewed, Agree with nursing records, Medication list reviewed. (12:07 LLDO) PHYSICAL EXAM CONSTITUTIONAL: Vital signs reviewed, Patient afebrile, Pulse, tachycardic, Blood pressure, BP SLIGHTLY LOW, Respiratory rate, increased, 30, Patient appears non toxic, Patient appears in pain, in moderate pain distress, Patient alert and oriented to person, place and time. (12:02 LLDO) HEAD: Head exam normal, Head exam included findings of head atraumatic, normocephalic. (12:07 LLDO) EYES: Eye exam included findings of, left eyelid red, left eyelid edematous, right eyelid red, right eyelid edematous, Pupils equally round and reactive to light, Extraocular muscles intact, Conjunctiva, injected bilaterally. (12:02 LLDO) ENT: Ear exam normal, Nose exam normal, Pharynx, injected bilaterally, Uvula exam normal, Mouth exam normal, Sinus exam included findings of frontal sinuses normal, maxillary sinuses normal. (12:02 LLDO) NECK: Neck exam included findings of normal range of motion, Trachea midline, Thyroid normal, no meningeal signs, Cervical adenopathy, diffuse, multiple nodes, tender, swollen. (12:02 LLDO) RESPIRATORY CHEST: Respiratory exam included findings of no respiratory distress, Wheezing present, Rales present, Chest exam included findings of chest movement symmetrical, Chest expansion equal, no tenderness, DIFFUSE, MODERATE WHEEZING AND RALES. (12:02 LLDO) CARDIOVASCULAR: Cardiovascular exam included findings of heart rate regular rate and rhythm, Heart sounds normal. (12:02 LLDO) ABDOMEN MALE: Abdominal exam included findings of abdomen tender, diffusely, moderate intensity, Bowel sounds, hypoactive, Distension present, no mass, no pulsatile masses, OBESITY LIMITS ABDO EXAM. (12:02 LLDO) BACK: Back exam normal, Back exam included findings of normal inspection, range of motion normal. (12:07 LLDO) UPPER EXTREMITY: Upper extremity exam normal, Upper extremity exam included findings of inspection normal, Range of motion normal. (12:07 LLDO) LOWER EXTREMITY: Lower extremity exam normal, Lower extremity exam included findings of inspection normal, Range of motion normal. &a-1R&a+25V*p+0X*u5082S*c202B*c15G*c2P*p-0X&a-25V&a+1R Name: Vj Perez : 1950 M65 MedRec: [id number] AcctNum: [id number] Prepared: [facility] Oct 20, 2016 19:56 by Interface Page 21 of 27 pMD [facility] EMERGENCY RECORD (12:07 LLDO) NEURO: Neuro exam normal, Neuro exam findings include patient oriented to person, place and time, Speech normal, Daria coma scale 15. (12:07 LLDO) SKIN: Skin exam included findings of skin warm, dry, and, pale, no rash. (12:02 LLDO) PSYCHIATRIC: Psychiatric exam included findings of patient oriented to person place and time, Affect, anxious, Judgment normal, Insight normal. (12:02 LLDO) EVENTS TRANSFER: Triage to Emergency Triage. ([facility] Oct 20, 2016 11:03 DBUR) Emergency Triage to Main ED -02. (11:17 DBUR) Removed from Emergency Main ED -02. (17:51 CJEF) DOCTOR NOTES (14:56 LLDO) TEXT: talked to dr mayberry at [facility], who had to refuse d.t. not having the ability to treat acute leukemias. accepted for [facility] by dr robbins. PROBLEM LIST No recorded problems DIAGNOSIS (12:46 LLDO) FINAL: PRIMARY: LEUKEMIA UNS NOT ACHIEVD REMISSION, ADDITIONAL: COPD WITH ACUTE EXACERBATION, Electrolyte imbalance, Renal failure, UGI bleed. DISPOSITION PATIENT: Disposition Type: Transfer, Disposition: [facility]. (12:46 LLDO) Disposition: (none). (13:18 LLDO) Disposition: [facility]. (14:59 LLDO) Patient left the department. (17:51 CJEF) PRESCRIPTION No recorded prescriptions IMAGING *EKG: Image captured from scanner. (12:26 JPER) PCP PAPERWORK: Image captured from scanner. (13:00 CJEF) Page 2 added. Image captured from scanner. (13:00 CJEF) BLOOD TRANSFUSION PAPERWORK: Image captured from scanner. (17:14 CJEF) BLOOD TRANSFUSION: Image captured from scanner. (17:35 DBUR) BLOOD TRANSFUSION PAPERWORK: Page 2 added. Image captured from scanner. (17:52 [facility]) *SUPPLY CHARGE SHEET: Image captured from scanner. (17:56 DBUR) BLOOD CONSENT: Image captured from scanner. (17:57 DBUR) &a-1R&a+25V*p+0X*f6429R*c202B*c15G*c2P*p-0X&a-25V&a+1R Name: Vj Perez : 1950 M65 MedRec: [id number] AcctNum: [id number] Prepared: Sat Oct 20, 2016 19:56 by Interface Page 22 of 27 pMD [facility] EMERGENCY RECORD TRANFER NOLAN=RKSHEET: Image captured from scanner. (17:57 DBUR) Page 2 added. Image captured from scanner. (17:57 DBUR) BLOOD CONSENT: Page 2 added. Image captured from scanner. (17:57 DBUR) ADMIN DIGITAL SIGNATURE: MD Fraire Lloyd. (15:00 LLDO) MD Fraire Lloyd. (15:00 LLDO) MD Fraire Lloyd. (15:00 LLDO) MD Fraire Lloyd. (15:00 LLDO) MD Fraire Lloyd. (15:00 LLDO) MD Fraire Lloyd. (15:00 LLDO) MD Fraire Lloyd. (15:00 LLDO) MD Fraire Lloyd. (15:00 LLDO) MD Fraire Lloyd. (15:00 LLDO) MD Fraire Lloyd. (15:00 LLDO) MD Fraire Lloyd. (15:00 LLDO) MD Fraire Lloyd. (15:00 LLDO) MD Fraire Lloyd. (15:00 LLDO) MD Fraire Lloyd. (15:00 LLDO) MD Fraire Lloyd. (15:00 LLDO) MD Fraire Lloyd. (15:00 LLDO) MD Fraire Lloyd. (15:00 LLDO) MD Fraire Lloyd. (15:00 LLDO) MD Fraire Lloyd. (15:00 LLDO) MD Fraire Lloyd. (15:00 LLDO) FRED Brito, [facility]. (18:31 DBUR) MD Fraire Lloyd. (19:45 LLDO) MD Fraire Lloyd. (19:46 LLDO) MD Fraire Lloyd. (19:46 LLDO) MD Fraire Lloyd. (19:46 LLDO) MD Fraire Lloyd. (19:46 LLDO) RESULTS RADIOLOGY: XR Chest 1 View Portable Observe DT: Sat Oct 20, 2016 11:33, CXRP SINGLE VIEW OF THE CHEST: COMPARISON: 09/24/16. HISTORY: GI bleed. FINDINGS: A single view of the chest shows a normal-size cardiomediastinal silhouette. There is stable left h ilar fullness. There is no evidence of consolidation or pleural effusion. &a-1R&a+25V*p+0X*j3829H*c202B*c15G*c2P*p-0X&a-25V&a+1R Name: Vj Perez : 1950 M65 MedRec: [id number] AcctNum: [id number] Prepared: [facility] Oct 20, 2016 19:56 by Interface Page 23 of 27 D [facility] EMERGENCY RECORD IMPRESSION: Stable exam with subtle left hilar fullness. POS: [facility] . (12:44 CJEF) CT Abdomen Pelvis WO Con Observe DT: Sat Oct 20, 2016 12:01, ABDPELWO CT OF THE ABDOMEN AND PELVIS WITHOUT CONTRAST: COMPARISON: None. HISTORY: Elevated white blood cell count. Back pain for the last 6-7 months. Heartburn for the last 6-7 day s. Abdominal pain and swelling. TECHNIQUE: Multiple contiguous axial images were obtained in a CT of the abdomen and pelvis without contrast. Coronal reformats were performed. FINDINGS: The liver is enlarged and heterogeneous in appearance. There appear to be lesions in the liver arely uring up to approximately 3.5 cm in size. These do not meet criteria for simple cysts. The gallbla dder, kidneys, adrenal glands, and pancreas are unremarkable. There are calcifications in the spleen likely from prior granulomatous disease. The large and small bowel are unremarkable without obvious mass identified on this noncontrast exami nation. The small bowel and appendix are normal. There is mild ectasia in the infrarenal aorta which measures 4.0 cm in greatest dimension. There is no retroperitoneal adenopathy. There are enlarged donnell hepatis lymph nodes measuring up to 2.8 cm in size. Abdominal wall soft tissues are unremarkable. Degenerative changes are seen in the spine. There is a small left pleural effusion. IMPRESSION: 1. There are diffuse scattered lesions in the liver which are nonspecific on this noncontrast exami &a-1R&a+25V*p+0X*x3540C*c202B*c15G*c2P*p-0X&a-25V&a+1R Name: Vj Perez : 1950 M65 MedRec: [id number] AcctNum: [id number] Prepared: [facility] Oct 20, 2016 19:56 by Interface Page 24 of 27 pMD [facility] EMERGENCY RECORD nation. However, these do not meet criteria for simple cysts and are concerning for hepatic metasta ses. Correlate with history of malignancy. 2. Left pleural effusion. 3. Ectasia of the infrarenal aorta. 4. Enlarged donnell hepatis lymph nodes. POS: [facility] . (14:25 CJEF) LABORATORY: Lipase Collection DT: [facility] Oct 20, 2016 12:06, Lipase 24 U/L, Range (8-78). (12:44 CJEF) Amylase Collection DT: [facility] Oct 20, 2016 12:06, Amylase 59 U/L, Range (25-125). (12:44 CJEF) B type Natriuretic Peptide Collection DT: [facility] Oct 20, 2016 11:46, B type Natriuretic Peptide 66.5 pg/mL, Range (0-100). (12:44 CJEF) PTT Collection DT: [facility] Oct 20, 2016 11:46, See comment below , Anticoagulant? NONE Medical Necessity SUSPECT COAGULOPATHY , PTT 29.4 SEC, Range (22.9-36.1). (12:44 CJEF) Protime with INR Collection DT: [facility] Oct 20, 2016 11:46, See comment below , Anticoagulant? NONE Medical Necessity SUSPECT COAGULOPATHY , Prothrombin Time 14.7 SEC, Range (12.0-14.7), INR-International Normal Ratio 1.1 , ATTENTION: READ CAREFULLY , The, recommended therapeutic ranges for oral anticoagulant treatments are: , , Low Intensity: 1.5 - 2.0 Moderate Intensity: 2.0, - 3.0 High Intensity (1): 2.5 - 3.5 High, Intensity (2): 3.0 - 4.0 CRITICAL: >, 4.0 . (12:44 [facility]) Comprehensive Metabolic Panel Collection DT: [facility] Oct 20, 2016 11:46, *Sodium 132 - L mmol/L, Range (136-145), *Potassium 5.8 - H mmol/L, Range (3.5-5.1), *Chloride 97 - L mmol/L, Range (98-107), *Carbon Dioxide 17 - L mmol/L, Range (23-31), *Anion Gap 24 - H mmol/L, Range (10-20), *BUN (Urea Nitrogen) 69 - H mg/dL, Range (8.4-25.7), *Creatinine 4.81 - H mg/dL, Range (0.7-1.3), Estimated GFR-MDRD 12 , Reference Range for Estimated GFR: Greater than 90, mL/min/1.73 m2 &a-1R&a+25V*p+0X*u3655U*c202B*c15G*c2P*p-0X&a-25V&a+1R Name: Vj Perez : 1950 M65 MedRec: [id number] AcctNum: [id number] Prepared: [facility] Oct 20, 2016 19:56 by Interface Page 25 of pMD [facility] EMERGENCY RECORD NOTE: The MDRD equation has not been validated for use, with the elderly (over 70 years of age), women, patients with, serious comorbid condition or persons with extremes of body size, muscle, mass, or nutritional status. , *Glucose 137 - H mg/dL, Range (80-115), Calcium 9.9 mg/dL, Range (7.8-10.44), Bilirubin, Total 0.5 mg/dL, Range (0.2-1.2), *Protein, Total 5.7 - L g/dL, Range (5.8-8.1), NOTE: Plasma values are generally 0.3 to 0.5 g/dL higher than serum values, due to the presence of fibrinogen. , *Albumin 3.3 - L g/dL, Range (3.4-4.8), Globulin 2.4 g/dL, Range (2.4-3.5), Alb/Glob Ratio 1.4 g/dL, Range (1.2-2.2), *Alkaline Phosphatase 245 - H U/L, Range (40-150), *AST (SGOT) 121 - H U/L, Range (5-34), ALT (SGPT) 44 U/L, Range (0-55). (12:44 [facility]) CBC with Differential Collection DT: Sat Oct 20, 2016 11:46, Critical Call w/ Read Back CALLED W/READ BACK , *White Blood Cell (WBC) Count 161.0 - *H thou/uL, Range (4.8-10.8), This is a CRITICAL VALUE Results called to: ER DOCTOR Results called, and verbally verified through read-back. by CHIVO Hurley on 10/20/16 at 1200. , , *Red Blood Cell (RBC) Count 2.69 - L mill/uL, Range (4.70-6.10), *Hemoglobin 9.4 - L g/dL, Range (14.0-18.0), *Hematocrit 27.5 - L %, Range (42.0-52.0), *Mean Corpuscular Volume 102.0 - H fL, Range (80.0-94.0), *Mean Corpuscular Hemoglobin 35.1 - H pg, Range (27.0-31.0), Mean Corpuscular HGB CONC 34.3 g/dL, Range (32.0-36.0), *RBC Distribution Width 15.1 - H %, Range (11.5-14.5), Platelet Count 192 thou/uL, Range (130-400), Mean Platelet Volume 7.9 fL, Range (7.4-10.4), *Neutrophil 3 - L %, Range (42-75), *Band 1 - L %, Range (5-11), *Lymphocytes 94 - H %, Range (21-51), *Metamyelocyte 2 - H %, Range (0-0), Macrocytosis SLIGHT = 6-15 cells (100X), Range (0-5/hpf), Smudge Cell MODERATE . (12:44 CJEF) CBC with Differential Collection DT: [place] Oct 20, 2016 14:09, See comment below , Comment needs new draw now , Critical Call w/ Read Back PT HX OF CLL , *White Blood Cell (WBC) Count 168.0 - *H thou/uL, Range (4.8-10.8), This is a CRITICAL VALUE Results called to: ER DOCTOR Results called, and verbally verified through read-back. by CHIVO Hurley on 10/20/16 at 1417. , &a-1R&a+25V*p+0X*i9296N*c202B*c15G*c2P*p-0X&a-25V&a+1R Name: Vj Perez : 1950 M65 MedRec: [id number] AcctNum: [id number] Prepared: [place] Oct 20, 2016 19:56 by Interface Page 26 of 27 pMD [facility] EMERGENCY RECORD , *Red Blood Cell (RBC) Count 2.65 - L mill/uL, Range (4.70-6.10), *Hemoglobin 9.1 - L g/dL, Range (14.0-18.0), *Hematocrit 27.0 - L %, Range (42.0-52.0), *Mean Corpuscular Volume 102.0 - H fL, Range (80.0-94.0), *Mean Corpuscular Hemoglobin 34.4 - H pg, Range (27.0-31.0), Mean Corpuscular HGB CONC 33.8 g/dL, Range (32.0-36.0), *RBC Distribution Width 14.7 - H %, Range (11.5-14.5), Platelet Count 182 thou/uL, Range (130-400), Mean Platelet Volume 8.3 fL, Range (7.4-10.4), *Neutrophil 5 - L %, Range (42-75), *Band 1 - L %, Range (5-11), *Lymphocytes 92 - H %, Range (21-51), *Metamyelocyte 2 - H %, Range (0-0), Macrocytosis SLIGHT = 6-15 cells (100X), Range (0-5/hpf), Smudge Cell MODERATE . (14:25 [facility]) MICROBIOLOGY: Occult Blood, Gastric: [id number] Collection DT: [facility] Oct 20, 2016 12:38, See comment below , @ ER ROOM#: [id number] Source: Gastric Spec Desc: PENDING, *Occult Blood Gastric POSITIVE for Occult , * Blood - H , Occult blood gastric pH 5 . (14:25 CJ) LABORATORY: Urine Microscopic Collection DT: [facility] Oct 20, 2016 12:36, RBC/HPF 0-3 HPF, Range (0-3), *WBC/HPF 4-6 - H HPF, Range (0-3), Squamous Epithelial 0-3 HPF, Range (0-3), Bacteria/HPF Rare-Few HPF, Range (None Seen). (14:25 CJ) Urinalysis w/ Rflx Microscopic Collection DT: [facility] Oct 20, 2016 12:36, Color Yellow , Range (Yellow), Clarity Clear , Range (Clear), Specific Hardy, Urine 1.030 , Range (1.005-1.030), , pH, Urine 5.0 , Range (5.0-9.0), Leukocyte Negative , Range (Negative), Nitrite Negative , Range (Negative), *Protein, Urine (Dipstick) 30 - H mg/dL, Range (Neg-Trace), Glucose, Urine (Dipstick) Negative mg/dL, Range (Negative), Ketone, Urine Negative mg/dL, Range (Negative), Urobilinogen 0.2 mg/dL, Range (0.2-1.0), Bilirubin Negative , Range (Negative), , Blood, Urine Negative , Range (Negative). (14:25 CJ) Perez: CHITRA=FRED Burroughs, Sonia CROCKER=FRED Brito, Trini DURAN=FRED Maddox, Yvonne FRITZ=MD Leanne, Marcus &a-1R&a+25V*p+0X*e8995I*c202B*c15G*c2P*p-0X&a-25V&a+1R Name: Vj Perez : 1950 M65 MedRec: [id number] AcctNum: [id number] Prepared: [place] Oct 20, 2016 19:56 by Interface Page 27 of 27 pMD MTDD
== END 2016-10-20 17:51 | disposition short-term general hospital (02) ==
LOC: MADERS 10:28
DX: C95.90 Leukemia, unspecified not having achieved remission (principal); J44.1 Chronic obstructive pulmonary disease with (acute) exacerbation; E87.8 Other disorders of electrolyte and fluid balance, not elsewhere classified; N19 Unspecified kidney failure; K92.2 Gastrointestinal hemorrhage, unspecified; F32.9 Major depressive disorder, single episode, unspecified; E78.00 Pure hypercholesterolemia, unspecified; I10 Essential (primary) hypertension; F17.210 Nicotine dependence, cigarettes, uncomplicated
CPT/HCPCS: 36415; 36430; 51702; 71010; 74176; 80053; 81003; 81015; 82150; 82271; 83690; 83880; 85025; 85610; 85730; 86850; 86900; 86901; 86922; 87086; 93005; 94760; 96360; 96361; 96374; 96375; C9113; J1100; J2270; J2354; J2405; J2930; J7050; J7620; P9016